=== PATIENT | female | born 1965 | race Caucasian/White ===

== ENCOUNTER → 2019-03-11 12:30 | Outpatient (CLI) | payer BC, SELFPAY ==
--- NOTE | ~2019-03-11 | MM_ITS ---
EXAMINATION: MM screening [facility] BI w karen HISTORY: Screening mammogram TECHNIQUE: Bilateral rotated lateral CC views. ......Craniocaudal and mediolateral oblique 3-D tomosy nthesis images were obtained and synthetic 2-D images were generated. CAD analysis was submitted and interpreted. COMPARISON: 01/04/2018 bilateral digital screening mammogram 03/02/2014 diagnostic right digital mammogram and complete right breast ultrasound 02/15/2014 bilateral digital screening mammogram BREAST PARENCHYMAL COMPOSITION: The breasts are heterogeneously dense, which may obscure small masses . FINDINGS: There is no evidence of suspicious mass, calcification, or architectural distortion to sugg est malignancy in either breast. There has been no suspicious interval change. IMPRESSION: 1. No mammographic evidence of malignancy. 2. Recommend routine screening mammography in one year. BI-RADS Category 1: Negative Reviewed, dictated and finalized at location A. ING ANALYST
== END ==
PROVIDERS: Visit Provider Nurse Practitioner Obstetrics & Gynecology
DX: Z12.31 Encounter for screening mammogram for malignant neoplasm of breast (principal)
CPT/HCPCS: 77063; 77067

== ENCOUNTER 2019-09-20 08:22 | Outpatient (CLI) | payer BC, SELFPAY ==
--- NOTE | ~2019-09-20 | XR_ITS ---
XR hand RT min 3V DATE: 09/20/2019 08:38 INDICATION: Right hand and first digit pain, extending into wrist TECHNIQUE: 3 views of right hand COMPARISON: None FINDINGS: Osteopenia. There are osteophytic changes involving primarily the interphalangeal joints, the distal interphalang eal joints particularly. No erosive change is evident. No chondrocalcinosis. No fracture, dislocation, periosteal reaction or bone destruction is detected. 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
== END 2019-09-20 08:23 | disposition home or self-care (01) ==
PROVIDERS: PCP Internal Medicine; Visit Provider Internal Medicine
DX: M79.641 Pain in right hand (principal)
CPT/HCPCS: 73130

== ENCOUNTER 2019-11-02 10:52 | Outpatient (CLI) | payer BC, SELFPAY ==
[2019-11-03 02:13] LABS: SARS-CoV-2 RNA PCR Negative
== END 2019-11-02 10:53 | disposition home or self-care (01) ==
PROVIDERS: PCP Internal Medicine; Visit Provider Internal Medicine
DX: Z20.828 Contact with and (suspected) exposure to other viral communicable diseases (principal)
CPT/HCPCS: 87635; C9803; U0003

== ENCOUNTER 2020-02-11 02:06 | Outpatient (CLI) | payer BC, SELFPAY ==
[2020-02-11 20:08] LABS: SARS-CoV-2 RNA PCR Negative
== END 2020-02-11 02:07 | disposition home or self-care (01) ==
LOC: ANHCOVIDDT 02:06
PROVIDERS: PCP Internal Medicine; Visit Provider Internal Medicine Gastroenterology
DX: Z01.818 Encounter for other preprocedural examination (principal); Z20.828 Contact with and (suspected) exposure to other viral communicable diseases
CPT/HCPCS: C9803; U0003

== ENCOUNTER 2020-02-15 00:54 | Day surgery (SDC) | payer BC, SELFPAY ==
[2020-01-30 14:02] VITALS: BMI 23.5
[2020-02-15 09:27] VITALS: BP 121/76; PULSE 81; RESP 20; TEMP 36.8; O2SAT 100
[2020-02-15] MEDS: LACTATED RINGERS 1,000 ML 150 ML IV CONT (09:37)
--- NOTE | 2020-02-15 10:13 | WPDANESEPPF ---
Anes - Initial Pre Proc Eval Procedure: Operation Date: 02/15/20 10:15 Proposed Procedures p Esophagogastroduodenoscopy & Colonoscopy - Juanito Gonzales MD Date/Time: 02/15/20 10:13 Surgeon: Juanito Gonzales MD Pre Op Diagnosis: GERD, rectal bleeding Patient Data Age: 54 Gender: F Height: 5 ft 6 in Weight: 65.2 kg Last Vital Signs Temp 98.2 F 02/15/20 09:27 Pulse 81 02/15/20 09:27 Resp 20 02/15/20 09:27 BP 121/76 02/15/20 09:27 Pulse Ox 100 02/15/20 09:27 Allergies Allergy/AdvReac Type Severity Reaction Status Date / Time Penicillins Allergy Swelling Verified 02/15/20 09:25 Home Medications Medication Instructions Recorded Confirmed Type alprazolam 0.5 mg tablet 0.5 mg PO DAILY PRN 01/19/20 01/30/20 History bupropion HCl 300 mg 24 hr tablet, 300 mg PO QAM 01/19/20 01/30/20 History extended release Patient hx anesthesia problems: none Family hx anesthesia problems: none [facility] Past Medical History Medical History (Updated 01/19/20 @ 09:13 by Juanito Gonzales MD) Epigastric pain Rectal bleeding Social History Social History (Updated 01/19/20 @ 08:37 by Rosmery Maldonado CMA) Smoking packs per day: 1.5 Smoking cigarettes per day: 30.0 Smoking status: Current every day smoker Tobacco type: cigarettes Alcohol intake: current Drinks per week: 10 Substance use: never Substance use type: does not use Living arrangements: with friend(s) Spiritual care concerns: No Anes - Eval Final PreProcedure Day of Procedure 02/15/20 10:13 Patient weight: normal Heart: regular rate and rhythm Lungs: clear to auscultation Airway: Mallampati scale class II Neurological: alert and oriented Last oral intake: >/= 8 hours and 2 hours ASA classification: II Emergent: no Anesthetic plan: proceed Anesthesia type and monitoring: general GIVS and standard monitoring Informed Consent: The patient's anesthetic plan and its attendant risks and benefits were discussed with the patient/family/POA. Questions were solicited and answers provided to the satisfaction of the patient/family/POA.
--- NOTE | 2020-02-15 10:36 | WPDHPUPDATE1 ---
History and Physical Update Update Date/Time: 02/15/20 10:36 History and Physical has been reviewed, including an updated exam of the patient. There are NO changes in the patient's condition. Risks, benefits, and alternatives have been discussed and questions answered. Patient agrees to proceed with procedure.
[2020-02-15 11:23] VITALS: BP 113/70; PULSE 70; RESP 17; O2SAT 92
--- NOTE | 2020-02-15 11:25 | SUR.OPER ---
resolution 360 clip times 1 used on Sigmoid polyp site lot number [id number] exp 11/30/22
[2020-02-15 11:33] VITALS: BP 117/77; PULSE 65; RESP 15; O2SAT 100
[2020-02-15 11:43] VITALS: BP 127/87; PULSE 66; RESP 20; O2SAT 100
== END 2020-02-15 11:59 | disposition home or self-care (01) ==
PROVIDERS: PCP Internal Medicine; Visit Provider Internal Medicine Gastroenterology
PROC: 0DJ08ZZ Inspection of Upper Intestinal Tract, Via Natural or Artificial Opening Endoscopic (ICD-10-PCS; CPT 43235; principal; 2020-02-15 10:15)
DX: Z12.11 Encounter for screening for malignant neoplasm of colon (principal); K62.5 Hemorrhage of anus and rectum; D12.5 Benign neoplasm of sigmoid colon; K29.50 Unspecified chronic gastritis without bleeding; K64.8 Other hemorrhoids; D12.0 Benign neoplasm of cecum; K21.9 Gastro-esophageal reflux disease without esophagitis; R10.13 Epigastric pain; F17.210 Nicotine dependence, cigarettes, uncomplicated
CPT/HCPCS: 43239; 45385; 87081; 88305; J2704; J7120

== ENCOUNTER → 2020-08-21 14:52 | Outpatient (CLI) | payer BC, SELFPAY ==
--- NOTE | ~2020-08-21 | MM_ITS ---
EXAMINATION: MM screening [facility] BI w karen HISTORY: Screening mammogram TECHNIQUE: Craniocaudal and mediolateral oblique 3-D tomosynthesis images were obtained and synthetic 2-D images were generated. CAD analysis was submitted and interpreted. COMPARISON: 03/11/2019, 01/04/2018, 03/02/2014, 02/15/2014 BREAST PARENCHYMAL COMPOSITION: The breasts are heterogeneously dense, which may obscure small masses . FINDINGS: There is no evidence of suspicious mass, calcification, or architectural distortion to sugg est malignancy in either breast. There has been no suspicious interval change. IMPRESSION: 1. No mammographic evidence of malignancy. 2. Recommend routine screening mammography in one year. BI-RADS Category 1: Negative Reviewed, dictated and finalized at location A.
== END ==
PROVIDERS: PCP Internal Medicine; Visit Provider Obstetrics & Gynecology
DX: Z12.31 Encounter for screening mammogram for malignant neoplasm of breast (principal)
CPT/HCPCS: 77063; 77067

== ENCOUNTER 2020-11-22 14:18 | Outpatient (CLI) | payer BC, SELFPAY ==
--- NOTE | ~2020-11-22 | XR_ITS ---
XR lumbar spine 2-3V DATE: 11/22/2020 14:57 INDICATION: Back pain radiating to buttocks from 3 weeks TECHNIQUE: AP, lateral, coned lateral lumbosacral views COMPARISON: None FINDINGS: Diffuse osteopenia. Minimal dextroscoliosis of the lumbar spine. There is slight anterolisthesis at L3-4 and slightly greater grade 1 anterolisthesis at L4-5. There is mild degenerative disc disease of the lumbar spine. The L5-S1 interspace is well preserved. No fracture or bone destruction is evident. The included lower thoracic and lumbar pedicles are intac t. The sacral iliac joints are normal. IMPRESSION: Mild degenerative disc disease Minimal anterolisthesis at L3-4 and L4-5 Osteopenia Reviewed, dictated and finalized at location B.
== END 2020-11-22 14:19 | disposition home or self-care (01) ==
LOC: CHSIMG 14:20
PROVIDERS: PCP Internal Medicine; Visit Provider Nurse Practitioner Family
DX: M54.59 Other low back pain (principal)
CPT/HCPCS: 72100

== ENCOUNTER 2020-12-07 07:19 | Outpatient (CLI) | payer BC, SELFPAY ==
--- NOTE | ~2020-12-07 | MR_ITS ---
EXAMINATION: MR lumbar spine wo con DATE: 12/07/2020 08:25 INDICATION: Low back pain. TECHNIQUE: Magnetic resonance imaging (MRI) of the lumbar spine was performed without intravenous con trast. Sequences included sagittal T2-weighted FSE, sagittal T2-weighted FS FSE, sagittal T1-weighted FSE, and axial T2-weighted FSE. COMPARISON: Lumbar spine radiographs 11/22/2020 FINDINGS: There is 3 degrees dextrocurvature of lumbar spine. Vertebral body heights are normal. Ther e is mildly decreased disc height at L4-L5. The distal spinal cord signal intensity is normal. The co nus medullaris is at L1. The following disc levels are specifically discussed: L1-L2: The disc does not extend beyond the endplate margin. There is moderate right and mild left fac et joint osteoarthritis. There is no neural foraminal stenosis. There is no central canal stenosis. L2-L3: The disc does not extend beyond the endplate margin. There is moderate bilateral facet joint o steoarthritis. There is no neural foraminal stenosis. There is no central canal stenosis. L3-L4: The disc is bulging. There is severe bilateral facet joint osteoarthritis. There is mild bilat eral neural foraminal stenosis. There is no central canal stenosis. L4-L5: The disc is bulging. There is severe bilateral facet joint osteoarthritis. There is mild bilat eral neural foraminal stenosis. There is mild central canal stenosis. L5-S1: The disc is bulging. There is severe bilateral facet joint osteoarthritis. There is mild bilat eral neural foraminal stenosis. There is no central canal stenosis. IMPRESSION: 1. Mild lumbar spondylosis. Reviewed, dictated and finalized at location A. IMPRESSION: 1. Mild lumbar spondylosis.
== END 2020-12-07 07:20 | disposition home or self-care (01) ==
PROVIDERS: PCP Internal Medicine; Visit Provider Nurse Practitioner Family
DX: M47.896 Other spondylosis, lumbar region (principal)
CPT/HCPCS: 72148

== ENCOUNTER 2020-12-11 12:47 | Outpatient (RCR) | payer BC, SELFPAY ==
--- NOTE | 2020-12-11 13:53 | PTOPEVAL ---
Thank you for referring Jolie Huff to [facility].? The patient is scheduled to be seen for therapy? ____x/week for ___ weeks. Please review, sign, date and return this plan of care [place]. I agree with and certify that the following plan of care is medically necessary. Referring Physician Date Admitting Provider: Attending Provider: Niall Lott MD Referring Provider: *PT Outpatient Evaluation Start: 12/11/20 12:56 Freq: Status: Active Protocol: Document 12/11/20 12:57 ACR (Rec: 12/11/20 13:52 ACR [id number]) Therapy Assessment Status Assessment Status Assessment Status Evaluation Outpatient Past Medical History Neurological History Hx Neurological Disorders No Significant History Cardiovascular History Hx Cardiac Disorders No Significant History Respiratory History Hx Respiratory Disorders No Significant History Gastrointestinal History Hx Hemorrhoids Yes Genitourinary History Hx Urinary Tract Infection Yes Musculoskeletal History Hx Fractures Yes: RT COLLAR BONE Hx Orthopedic Surgery Yes: RT COLLAR BONE Hematological History Hx Hematological Disorders No Significant History Endocrine History Hx Endocrine Disorders No Significant History HEENT History Hx Eye Surgery Yes: LASIK Integumentary History Hx Skin Disorders No Significant History Reproductive History Hx Abnormal Uterine Bleeding Yes Hx Post Menopausal Yes Psychosocial History Hx Anxiety Yes Pain History History of Any Previous or Ongoing No Significant History Instance of Pain Anesthesia History Hx Anesthesia Reactions No Significant History Evaluation Information Problem Diagnosis low back pain Subjective Information Patient states that her back Query Text:As Reported By Patient/ pain started to intensify Family gradually about 6 weeks ago. She states that if she stands for more than 10 minutes the pain is intense. She states she can walk a little bit but needs to bend forward to make it feel better. She use to go on long walks, but is unable to so and she is unable to go to the gym because of the pain . She states she is doing some core exercises. Patient states that she got an MRI that showed bulging discs at 3 -4-5, foramenal arthritis is L3
== END 2020-12-27 17:00 | disposition home or self-care (01) ==
LOC: CHSPT 12:47
PROVIDERS: PCP Internal Medicine; Visit Provider Internal Medicine
DX: M54.50 Low back pain, unspecified (principal)
CPT/HCPCS: 97110; 97161; 97530

== ENCOUNTER 2021-01-28 13:42 | Outpatient (CLI) | payer BC, SELFPAY ==
[2021-01-28 15:26] LABS: Influenza A QL RT-PCR Negative (Negative); Influenza B QL RT-PCR Negative (Negative); SARS-CoV-2 RNA PCR Negative (Negative)
== END 2021-01-28 13:43 | disposition home or self-care (01) ==
LOC: CHSLAB 13:44
PROVIDERS: PCP Internal Medicine; Visit Provider Internal Medicine
DX: J06.9 Acute upper respiratory infection, unspecified (principal); Z20.822 Contact with and (suspected) exposure to COVID-19
CPT/HCPCS: 87502; C9803; U0003; U0005

== ENCOUNTER → 2021-09-03 16:30 | Outpatient (CLI) | payer BC, SELFPAY ==
--- NOTE | ~2021-09-03 | MM_ITS ---
EXAMINATION: MM screening benjamin BI w karen HISTORY: Screening mammogram TECHNIQUE: Craniocaudal and mediolateral oblique 3-D tomosynthesis images were obtained and synthetic 2-D images were generated. CAD analysis was submitted and interpreted. COMPARISON: 08/21/2020, 03/11/2019, 01/04/2018 bilateral screening mammogram examinations BREAST PARENCHYMAL COMPOSITION: The breasts are heterogeneously dense, which may obscure small masses . FINDINGS: There is no evidence of suspicious mass, calcification, or architectural distortion to sugg est malignancy in either breast. There has been no suspicious interval change. IMPRESSION: 1. No mammographic evidence of malignancy. 2. Recommend routine screening mammography in one year. BI-RADS Category 1: Negative Reviewed, dictated and finalized at location A.
== END ==
PROVIDERS: PCP Internal Medicine; Visit Provider Nurse Practitioner Obstetrics & Gynecology
DX: Z12.31 Encounter for screening mammogram for malignant neoplasm of breast (principal)
CPT/HCPCS: 77063; 77067

== ENCOUNTER 2021-09-20 11:15 | Outpatient (CLI) | payer BC, SELFPAY ==
--- NOTE | ~2021-09-20 | XR_ITS ---
EXAMINATION: XR ribs RT 2V w CXR 2V INDICATION: Right lateral rib pain, cough TECHNIQUE: Frontal and lateral views of the chest and 3 views of the right ribs were obtained. COMPARISON: 12/03/2015 FINDINGS: There are airspace opacities and volume loss of the right middle and lower lobes. There is a small right pleural effusion. No pneumothorax is identified. The cardiomediastinal silhouette is no rmal. There is moderate thoracic spondylosis. No displaced rib fracture is identified. IMPRESSION: 1. Airspace opacities and volume loss in the right middle and lower lobes, consistent with atelectasi s and/or pneumonia. Recommend followup radiographs in 10-14 days after appropriate therapy to evaluat e for improvement/resolution. 2. Small pleural effusion. 3. No displaced rib fracture identified. Reviewed, dictated and finalized at location A. IMPRESSION: 1. Airspace opacities and volume loss in the right middle and lower lobes, cons istent with atelectasis and/or pneumonia. Recommend followup radiographs in 10- 14 days after appropriate therapy to evaluate for improvement/resolution. 2. Small pleural effusion. 3. No displaced rib fracture identified.
[2021-09-20 11:47] LABS: Basophils Absolute Auto 0.04 K/mm3 (0.00-0.10); Basophils Percent Auto 0.5 % (0.0-1.0); Eosinophils Absolute Auto 0.23 K/mm3 (0.02-0.50); Eosinophils Percent Auto 2.7 % (1.0-6.0); Hematocrit 36.1 % (35.0-49.0); Hemoglobin 11.4 g/dL (12.0-15.0); Immature Granulocyte Absolute 0.02 K/mm3 (0.00-0.00); Immature Granulocyte Percent A 0.2 % (0.0-0.0); Lymphocytes Absolute Auto 1.26 K/mm3 (1.10-4.50); Lymphocytes Percent Auto 14.6 % (18.0-42.0); Mean Corpuscular HGB Conc 31.6 g/dL (32.0-36.0); Mean Corpuscular Hemoglobin 31.1 pg (27.0-31.0); Mean Corpuscular Volume 98.6 fL (78.0-102.0); Mean Platelet Volume 9.2 fl (9.2-11.8); Monocytes Absolute Auto 0.98 K/mm3 (0.10-0.90); Monocytes Percent Auto 11.3 % (2.0-11.0); Neutrophils Absolute Auto 6.1 K/mm3 (1.7-7.2); Neutrophils Percent Auto 70.7 % (50.0-70.0); Platelet Count Result 423 K/mm3 (150-420); Red Blood Count 3.66 M/mm3 (4.20-5.40); White Blood Count 8.7 K/mm3 (4.8-10.8)
[2021-09-20 12:03] LABS: Alanine Aminotransferase 18 U/L (14-59); Albumin Level 3.1 g/dL (3.4-5.0); Alkaline Phosphatase 70 U/L (46-116); Amylase 36 U/L (25-115); Anion Gap 10 mmol/L (8-16); Aspartate Amino Transferase 16 U/L (15-37); Bilirubin,Total 0.3 mg/dL (0.00-1.00); Blood Urea Nitrogen 11 mg/dL (7-18); Calcium 9.5 mg/dL (8.5-10.1); Carbon Dioxide 26 mmol/L (21-32); Chloride 102 mmol/L (98-108); Estimated Glomerular Filt Rate > 60; Glucose 108 mg/dL (70-99); Lipase 104 U/L (73-393); Osmolality Calculated 286 mOsm/kg (285-295); Potassium 4.2 mmol/L (3.5-5.1); Sodium 138 mmol/L (136-145); Total Protein 7.7 g/dL (6.4-8.2)
[2021-09-20 12:09] LABS: CRP 12.5 mg/dL (0.0-0.9)
[2021-09-20 12:22] LABS: SARS-CoV-2 RNA PCR Negative (Negative)
[2021-09-20 16:28] LABS: Ferritin 335 ng/mL (8-252); Iron 16 ug/dL (50-170); Percent Iron Saturation 9 % (12-57)
== END 2021-09-20 11:16 | disposition home or self-care (01) ==
LOC: CHSLAB 11:19
PROVIDERS: PCP Internal Medicine; Visit Provider Nurse Practitioner Family
DX: J06.9 Acute upper respiratory infection, unspecified (principal); R07.81 Pleurodynia; R11.0 Nausea; R19.7 Diarrhea, unspecified; R10.9 Unspecified abdominal pain; Z20.822 Contact with and (suspected) exposure to COVID-19; D64.9 Anemia, unspecified
CPT/HCPCS: 36415; 71046; 71100; 80053; 82150; 82728; 83540; 83550; 83690; 85025; 86140; C9803; U0003; U0005

== ENCOUNTER 2021-09-30 07:52 | Outpatient (CLI) | payer BC, SELFPAY ==
--- NOTE | ~2021-09-30 | CT_ITS ---
EXAMINATION: CT diagnostic chest w con DATE: 09/30/2021 08:19 INDICATION: Right-sided chest pain TECHNIQUE: Transaxial computed tomographic images of the chest were obtained after the administration of 75 cc of Omnipaque 350 intravenous contrast. The dose-length product (DLP) was 125.98 mGy-cm. Ite rative reconstruction was used. COMPARISON: None FINDINGS: There are pulmonary emboli in the right lower lobe. There are right lower lobe airspace opa cities peripheral to the emboli. The lungs are otherwise free of acute opacities. There is a small ri ght pleural effusion. No pathologically enlarged thoracic lymph nodes are identified. The heart size is normal. There is mild thoracic spondylosis. IMPRESSION: 1. Pulmonary emboli in the right lower lobe with right lower lobe airspace opacities peripheral to th e emboli, consistent with pulmonary infarct. These findings were discussed with nurse Rena practitioner in the office of Dr. Lott at 1028 hours on 09/30/2021. Reviewed, dictated and finalized at location B. IMPRESSION: 1. Pulmonary emboli in the right lower lobe with right lower lobe airspace opac ities peripheral to the emboli, consistent with pulmonary infarct. These findings were discussed with nurse sharifa Chase in the office of Dr Brant Lott at 1028 hours on 09/30/2021.
[2021-09-30 12:53] LABS: Basophils Absolute Auto 0.11 K/mm3 (0.00-0.10); Basophils Percent Auto 1.6 % (0.0-1.0); Eosinophils Absolute Auto 0.31 K/mm3 (0.02-0.50); Eosinophils Percent Auto 4.4 % (1.0-6.0); Hematocrit 39.5 % (35.0-49.0); Hemoglobin 12.6 g/dL (12.0-15.0); Immature Granulocyte Absolute 0.03 K/mm3 (0.00-0.00); Immature Granulocyte Percent A 0.4 % (0.0-0.0); Lymphocytes Absolute Auto 2.47 K/mm3 (1.10-4.50); Lymphocytes Percent Auto 35.2 % (18.0-42.0); Mean Corpuscular HGB Conc 31.9 g/dL (32.0-36.0); Mean Corpuscular Hemoglobin 31.5 pg (27.0-31.0); Mean Corpuscular Volume 98.8 fL (78.0-102.0); Mean Platelet Volume 10.4 fl (9.2-11.8); Monocytes Absolute Auto 0.44 K/mm3 (0.10-0.90); Monocytes Percent Auto 6.3 % (2.0-11.0); Neutrophils Absolute Auto 3.7 K/mm3 (1.7-7.2); Neutrophils Percent Auto 52.1 % (50.0-70.0); Platelet Count Result 533 K/mm3 (150-420)
[2021-09-30 13:25] LABS: Prothrombin Time 10.8 Seconds (9.50-12.10)
[2021-09-30 13:30] LABS: Alanine Aminotransferase 17 U/L (14-59); Albumin Level 3.9 g/dL (3.4-5.0); Alkaline Phosphatase 63 U/L (46-116); Anion Gap 7 mmol/L (8-16); Aspartate Amino Transferase 18 U/L (15-37); Bilirubin,Total 0.2 mg/dL (0.00-1.00); Blood Urea Nitrogen 11 mg/dL (7-18); Calcium 9.3 mg/dL (8.5-10.1); Carbon Dioxide 29 mmol/L (21-32); Chloride 101 mmol/L (98-108); Estimated Glomerular Filt Rate > 60; Glucose 91 mg/dL (70-99); NT Pro B Type Natriuretic Pept 47 pg/mL (0-125); Osmolality Calculated 283 mOsm/kg (285-295); Potassium 3.6 mmol/L (3.5-5.1); Sodium 137 mmol/L (136-145); Total Protein 7.9 g/dL (6.4-8.2)
[2021-10-02 19:34] LABS: APC Ratio 4.2 ratio (>=2.1)
[2021-10-02 21:08] LABS: Factor VIII Activity 146 % normal (50-180)
[2021-10-03 11:02] LABS: Homocysteine 17.2 umol/L (<10.4)
[2021-10-03 11:31] LABS: Anti Cardio Antibody IgM <2.0 MPL-U/mL (<20.0); Anti Cardiolipin Antibody IgA <2.0 APL-U/mL (<20.0); Anti Cardiolipin Antibody IgG <2.0 GPL-U/mL (<20.0)
[2021-10-03 12:50] LABS: Protein S Antigen, Free 128 % normal (50-147); Protein S Antigen, Total 122 % normal (70-140)
[2021-10-04 07:01] LABS: Reference Lab Test Name PHOSPHATIDYLSERINE
[2021-10-05 04:29] LABS: Lupus dRVVT 1:1 Mix Interpreta Not Indicated; Lupus dRVVT Screen 44 sec (<=45); PTT-LA Screen 36 sec (<=40)
[2021-10-07 07:23] LABS: Reference Lab Test Name FACTOR V (LEIDEN)
== END 2021-09-30 07:53 | disposition home or self-care (01) ==
PROVIDERS: PCP Internal Medicine; Visit Provider Internal Medicine
DX: I26.99 Other pulmonary embolism without acute cor pulmonale (principal); R07.9 Chest pain, unspecified; R91.8 Other nonspecific abnormal finding of lung field
CPT/HCPCS: 36415; 71260; 80053; 81240; 81241; 81291; 83090; 83880; 85025; 85240; 85300; 85303; 85305; 85306; 85307; 85610; 85613; 85730; 86146; 86147; 86148; Q9967

== ENCOUNTER 2021-10-08 13:32 | Outpatient (CLI) | payer BC, SELFPAY ==
--- NOTE | ~2021-10-08 | US_ITS ---
EXAMINATION: US venous doppler [facility] DATE: 10/08/2021 14:18 INDICATION: left calf pain and bruising . TECHNIQUE: Grayscale images without and with compression and Doppler images of the bilateral lower ex tremity veins were obtained. COMPARISON: None FINDINGS: The right common femoral vein, profunda (deep) femoral vein, femoral vein, popliteal vein, peroneal v ein, posterior tibial veins, gastrocnemius vein, lesser and greater saphenous vein are patent. The left common femoral vein, profunda femoral vein, femoral vein, popliteal vein, peroneal vein, pos terior tibial veins, gastrocnemius vein, lesser and greater saphenous vein are patent. IMPRESSION: 1. Patent bilateral lower extremity veins. No evidence of deep venous thrombosis. Reviewed, dictated and finalized at location K. IMPRESSION: 1. Patent bilateral lower extremity veins. No evidence of deep venous thrombos is.
== END 2021-10-08 13:33 | disposition home or self-care (01) ==
LOC: CHSIMG 13:34
PROVIDERS: PCP Internal Medicine; Visit Provider Internal Medicine
DX: M79.662 Pain in left lower leg (principal); S80.12XA Contusion of left lower leg, initial encounter; I26.99 Other pulmonary embolism without acute cor pulmonale
CPT/HCPCS: 93970

== ENCOUNTER 2021-10-23 12:14 | Outpatient (CLI) | payer BC, SELFPAY ==
[2021-10-23 12:34] LABS: Hematocrit 39.2 % (35.0-49.0); Hemoglobin 12.3 g/dL (12.0-15.0); Mean Corpuscular HGB Conc 31.4 g/dL (32.0-36.0); Mean Corpuscular Hemoglobin 31.3 pg (27.0-31.0); Mean Corpuscular Volume 99.7 fL (78.0-102.0); Mean Platelet Volume 10.6 fl (9.2-11.8); Platelet Count Result 243 K/mm3 (150-420); Red Blood Count 3.93 M/mm3 (4.20-5.40); Red Cell Distribution Width 13.2 % (11.6-14.4); White Blood Count 3.8 K/mm3 (4.8-10.8)
[2021-10-23 12:55] LABS: CRP < 0.5 mg/dL (0.0-0.9)
[2021-10-23 13:09] LABS: Band Neutrophils Percent 0 % (0-6); Lymphocytes Absolute Manual 1.71 K/mm3 (1.1-4.5); Lymphocytes Percent Manual 45 % (18-44); Monocytes Absolute Manual 0.11 K/mm3 (0.1-0.90); Monocytes Percent Manual 3 % (3-9); Neutrophils Absolute Manual 1.97 K/mm3 (1.7-7.2); Neutrophils Percent Manual 52 % (46-73); Platelet Estimate Adequate (Adequate); Total Cells Counted 100
[2021-10-25 21:32] LABS: Anti Cyclic Citrullinated Pept <16 Units (<20)
[2021-10-29 06:54] LABS: Anti Nuclear Antibody Pattern Nuclear, Speckled; Anti Nuclear Antibody Titer 1:40 (Negative)
[2021-10-29 21:23] LABS: ANCA Screen Negative (Negative)
[2021-11-01 16:25] LABS: Reference Lab Test Name ANTIPHOSPHOLIPID AB
== END 2021-10-23 12:15 | disposition home or self-care (01) ==
LOC: CHSLAB 12:18
PROVIDERS: PCP Internal Medicine; Visit Provider Internal Medicine
DX: I26.99 Other pulmonary embolism without acute cor pulmonale (principal); D64.9 Anemia, unspecified; D68.59 Other primary thrombophilia
CPT/HCPCS: 36415; 85025; 86036; 86038; 86039; 86140; 86146; 86147; 86148; 86200

== ENCOUNTER 2021-12-25 14:40 | Outpatient (CLI) | payer BC, SELFPAY ==
[2021-12-25 14:57] LABS: Basophils Absolute Auto 0.04 K/mm3 (0.00-0.10); Basophils Percent Auto 0.9 % (0.0-1.0); Eosinophils Absolute Auto 0.08 K/mm3 (0.02-0.50); Eosinophils Percent Auto 1.8 % (1.0-6.0); Hemoglobin 12.3 g/dL (12.0-15.0); Immature Granulocyte Absolute 0.01 K/mm3 (0.00-0.00); Immature Granulocyte Percent A 0.2 % (0.0-0.0); Lymphocytes Percent Auto 48.2 % (18.0-42.0); Mean Corpuscular HGB Conc 32.4 g/dL (32.0-36.0); Mean Corpuscular Hemoglobin 31.9 pg (27.0-31.0); Mean Corpuscular Volume 98.7 fL (78.0-102.0); Monocytes Percent Auto 8.8 % (2.0-11.0); Neutrophils Absolute Auto 1.8 K/mm3 (1.7-7.2); Neutrophils Percent Auto 40.1 % (50.0-70.0); Platelet Count Result 260 K/mm3 (150-420); Red Blood Count 3.85 M/mm3 (4.20-5.40); Red Cell Distribution Width 12.8 % (11.6-14.4); White Blood Count 4.6 K/mm3 (4.8-10.8)
[2021-12-25 15:30] LABS: Alanine Aminotransferase 22 U/L (14-59); Alkaline Phosphatase 52 U/L (46-116); Anion Gap 5 mmol/L (8-16); Aspartate Amino Transferase 20 U/L (15-37); Bilirubin,Total 0.3 mg/dL (0.00-1.00); Blood Urea Nitrogen 16 mg/dL (7-18); Calcium 9.2 mg/dL (8.5-10.1); Carbon Dioxide 32 mmol/L (21-32); Chloride 104 mmol/L (98-108); Estimated Glomerular Filt Rate > 60; Glucose 125 mg/dL (70-99); Osmolality Calculated 294 mOsm/kg (285-295); Potassium 4.6 mmol/L (3.5-5.1); Sodium 141 mmol/L (136-145); Total Protein 7.2 g/dL (6.4-8.2)
[2021-12-25 15:32] LABS: CRP < 0.5 mg/dL (0.0-0.9)
== END 2021-12-25 14:41 | disposition home or self-care (01) ==
LOC: CHSLAB 14:42
PROVIDERS: PCP Internal Medicine; Visit Provider Internal Medicine
DX: D72.819 Decreased white blood cell count, unspecified (principal); M54.9 Dorsalgia, unspecified
CPT/HCPCS: 36415; 80053; 85025; 86140

== ENCOUNTER 2022-02-19 00:20 | Day surgery (SDC) | payer BC, SELFPAY ==
[2022-02-11 09:59] VITALS: BMI 24.1
--- NOTE | 2022-02-11 10:03 | PC.NURSE ---
Report to the Outpatient Waiting Room, entrance under the green pavilion located off [facility], at time 0730 on date 02/19/22. Planned Procedure Time: 0930. Time changes happen often and if your time is changed the preop area will call you the afternoon before. - You and your visitor will be asked to self-screen and do not enter if you have any COVID symptoms. - Only one visitor is requested with a max of two and NO children visitors are allowed at this time. - The patient visitor may be requested to leave or wait in car when not with patient due to distancing restrictions. - A mask is REQUIRED within the hospital. Patients may have clear liquids (water, carbonated beverages, clear teas, apple juice) until 3 hours prior to surgery with a maximum of 20 ounces. - No food from midnight until time of surgery Take the following medications with a SIP of water the morning of surgery: ALPRAZOLAM, BUPROPION Medications to discontinue per physician: N/A Date to take last dose: N/A Please no make-up, nail romansh, hairspray, perfume, deodorant, or body powder the day of surgery. No jewelry (including any body piercings) or valuables the day of surgery, leave them at home. Please take a shower or bath the night before, or the morning of, surgery with an antibacterial soap. Wear comfortable, loose fitting clothing. - Jewelry must be removed prior to entering the operating room. Rings and piercings that are not removed may be cut off. - The hospital will not accept responsibility for valuables. - Please leave all valuables, including medications, at home the day of surgery. If you are going home after surgery, a licensed milk tanker driver must drive you home. - NO public transportation without another adult if you receive anesthesia. - We recommend that an adult stay with you for 24 hours following discharge. - We also recommend that you do not drive, make important decision, drink alcoholic beverages, or take any drugs that were not prescribed by your health care provider for at least 24 hours after your discharge time. Follow any additional instructions given to you from your surgeon. If you or anyone in your household have experienced Covid symptoms in the past week, please notify your surgeon or the nurse liaison at the phone number below for possible testing. Telephone instructions given to PT - DARCY CHAIDEZ and asked if any additional questions and then verbalized understanding. Patient advised to call surgeon office or pre surgery nurse liaison [phone] if any additional questions.
[2022-02-19] MEDS: ACETAMINOPHEN 500 MG TABLET 1000 MG PO (07:43)
[2022-02-19 07:51] VITALS: BP 125/59; PULSE 75; RESP 16; TEMP 36.5; O2SAT 100
[2022-02-19] MEDS: LACTATED RINGERS 1,000 ML 30 ML IV CONT ×2 (08:09→11:38)
--- NOTE | 2022-02-19 08:28 | P.PNAN_ITS ---
Anes - Initial Pre Proc Eval Procedure: Operation Date: 02/19/22 09:30 Proposed Procedures p Conization of Cervix - Иван Avila MD Date/Time: 02/19/22 08:28 Surgeon: Иван Avila MD Pre Op Diagnosis: dysplasia of cervix Patient Data Age: 56 Gender: F Height: 1.65 m Weight: 67 kg Last Vital Signs Temp 36.5 C 02/19/22 07:51 Pulse 75 02/19/22 07:51 Resp 16 02/19/22 07:51 BP 125/59 L 02/19/22 07:51 Pulse Ox 100 02/19/22 07:51 O2 Del Method Room Air 02/19/22 07:51 Allergies Allergy/AdvReac Type Severity Reaction Status Date / Time Penicillins Allergy Intermediate Swelling Verified 02/19/22 07:38 Home Medications Medication Instructions Recorded Confirmed Type alprazolam 0.5 mg tablet 0.5 mg PO DAILY PRN Anxiety 01/19/20 02/19/22 History bupropion HCl 300 mg 24 hr tablet, 300 mg PO QAM 01/19/20 02/19/22 History extended release Patient hx anesthesia problems: none Family hx anesthesia problems: none Results Review: All pre-operative results and documents have been reviewed as part of the pre- operative evaluation. [facility] Past Medical History Medical History Epigastric pain Rectal bleeding Surgical History Surgical History (Updated 02/19/22 @ 08:28 by Rey Cortes MD) H/O colonoscopy History of esophagogastroduodenoscopy (EGD) Social History Social History Smoking packs per day: 1 Smoking cigarettes per day: 20.0 Years smoked: 25 Smoking pack-years: 25.00 Smoking status: Current some day smoker Tobacco type: cigarettes Alcohol intake: current Drinks per week: 14 Alcohol use details: WINE Substance use: never Substance use type: does not use Living arrangements: alone Spiritual care concerns: No Anes - Eval Final PreProcedure Day of Procedure 02/19/22 08:28 Patient weight: normal Heart: regular rate and rhythm Lungs: clear to auscultation Airway: Mallampati scale class II Neurological: alert and oriented Last oral intake: >/= 8 hours ASA classification: II Emergent: no Anesthetic plan: proceed Anesthesia type and monitoring: general GIVS and standard monitoring Results Review: All pre-operative results and documents have been reviewed as part of the pre- operative evaluation. Informed Consent: The patient's anesthetic plan and its attendant risks and benefits were discussed with the patient/family/POA. Questions were solicited and answers provided to the satisfaction of the patient/family/POA.
--- NOTE | 2022-02-19 10:29 | WPDHPUPDATE1 ---
History and Physical Update Update Date/Time: 02/19/22 10:29 History and Physical has been reviewed, including an updated exam of the patient. There are NO changes in the patient's condition. Risks, benefits, and alternatives have been discussed and questions answered. Patient agrees to proceed with procedure.
[2022-02-19 11:38] VITALS: BP 154/78; PULSE 74; RESP 18; O2SAT 98
[2022-02-19] MEDS: fentaNYL CITRATE INJ (*CRX) 100 MCG/2 ML VIAL 25 MCG IV PUSH ×4 (11:41→11:50)
--- NOTE | 2022-02-19 11:48 | P.OP_ITS ---
Procedure Note - Detailed Date of Procedure 02/19/22 Pre-op Diagnosis dysplasia of cervix Post-op Diagnosis Same Procedure Performed Conization of the cervix Surgeon Иван Avila MD Anesthesia MAC Indications MILADYS 3 Findings cervix status post LEEP, some scarring, some disfiguration. Description of Procedure The patient was taken the operating room. She was prepped and draped in the dorsal lithotomy position after induction of MAC anesthesia. A speculum was placed in the vagina. Stay sutures were placed at 3 and 9:00 a.m. after application of a tenaculum. Using a freehand style approach cutting cautery was used to make a large aggressive cone biopsy specimen starting out on the lateral aspects of the anterior cervix and moving in a circular fashion around the cervix, moving centrally towards the endocervical canal but deeper into the cervix. When this cutting technique was completed and the cone biopsy specimen was excised The cut surface of the cervix was then cauterized. A suture was p laced in the posterior aspect of the cervix. This almost made the cervix completely hemostatic. Monsel's was then applied. A stay sutures for all tied together centrally. It was hemostatic at that time. The procedure was terminated. The speculum was removed. The stay sutures were cut. The procedure was completed. The patient was taken to the cover room stable condition. Sponge lap and needle counts were correct x2.. Estimated Blood Loss 25 Pathology Yes Complications No immediate complications Condition Stable Disposition Same day
[2022-02-19] MEDS: KETOROLAC 30 MG/ML VIAL (*BKC) IV PUSH (11:54)
[2022-02-19] MEDS: HYDROmorphone HCL INJ (*CRX) 1 MG/ML SYR 0.5 MG IV PUSH ×2 (11:58→12:15)
[2022-02-19 12:00] VITALS: BP 126/76; PULSE 65; RESP 16; O2SAT 99
[2022-02-19 12:30] VITALS: BP 139/88; PULSE 61; RESP 16
[2022-02-19] MEDS: oxyCODONE HCL (*CRX) 5 MG TAB IR PO (12:49)
[2022-02-19 13:00] VITALS: BP 141/79; PULSE 54; RESP 14
[2022-02-19 13:20] VITALS: BP 142/90; PULSE 63; RESP 14
== END 2022-02-19 13:27 | disposition home or self-care (01) ==
PROVIDERS: PCP Internal Medicine; Visit Provider Obstetrics & Gynecology
PROC: 0UBC7ZZ Excision of Cervix, Via Natural or Artificial Opening (ICD-10-PCS; CPT 57522; principal; 2022-02-19 09:30)
DX: N87.9 Dysplasia of cervix uteri, unspecified (principal); F17.210 Nicotine dependence, cigarettes, uncomplicated
CPT/HCPCS: 57522; 88307; A9270; J1170; J1885; J2250; J2704; J3010; J7120

== ENCOUNTER 2022-04-08 01:09 | Day surgery (SDC) | payer BC, SELFPAY ==
[2022-03-25 15:23] VITALS: BMI 24.0
--- NOTE | 2022-04-07 09:30 | P.PNAN_ITS ---
Anes - Initial Pre Proc Eval Procedure: Operation Date: 04/08/22 08:30 Proposed Procedures p Screening Colonoscopy - Juanito Gonzales MD Date/Time: 04/07/22 09:30 Surgeon: Juanito Gonzales MD Pre Op Diagnosis: hx of colon polyps Patient Data Age: 56 Gender: F Height: 1.66 m Weight: 66 kg Allergies Allergy/AdvReac Type Severity Reaction Status Date / Time Penicillins Allergy Severe Swelling Verified 04/08/22 07:12 Home Medications Medication Instructions Recorded Confirmed Type alprazolam 0.5 mg tablet 0.5 mg PO DAILY PRN Anxiety 01/19/20 04/08/22 History bupropion HCl 300 mg 24 hr tablet, 300 mg PO QAM 01/19/20 04/08/22 History extended release apixaban 5 mg tablet (Eliquis) 5 mg PO BID 03/25/22 04/08/22 History Patient hx anesthesia problems: none Family hx anesthesia problems: none Results Review: All pre-operative results and documents have been reviewed as part of the pre- operative evaluation. [facility] Past Medical History Medical History (Updated 04/08/22 @ 08:00 by Miguel Angel Cifuentes DO) Anxiety Depression Epigastric pain History of pulmonary embolism 09/2021 Rectal bleeding Surgical History Surgical History (Updated 02/19/22 @ 08:28 by Rey Cortes MD) H/O colonoscopy History of esophagogastroduodenoscopy (EGD) Social History Social History (Updated 04/08/22 @ 08:01 by Miguel Angel Cifuentes DO) Smoking packs per day: 1 Smoking cigarettes per day: 20.0 Years smoked: 25 Smoking pack-years: 25.00 Smoking status: Former smoker Tobacco type: cigarettes Alcohol intake: current Drinks per week: 10 Alcohol use details: 1-2 glasses wine/day Substance use: never Substance use type: does not use Living arrangements: with family Occupation/Education: unemployed Spiritual care concerns: No Anes - Eval Final PreProcedure Day of Procedure 04/07/22 09:30 Patient weight: normal Heart: regular rate and rhythm Lungs: clear to auscultation and normal air movement Airway: Mallampati scale class II Neurological: alert and oriented Last oral intake: >/= 8 hours ASA classification: III Emergent: no Anesthetic plan: proceed Anesthesia type and monitoring: general GIVS and standard monitoring Results Review: All pre-operative results and documents have been reviewed as part of the pre- operative evaluation. Informed Consent: The patient's anesthetic plan and its attendant risks and benefits were discussed with the patient/family/POA. Questions were solicited and answers provided to the satisfaction of the patient/family/POA.
[2022-04-08 07:03] VITALS: BP 131/88; PULSE 73; RESP 18; TEMP 36.3; O2SAT 100; BMI 24.3
[2022-04-08] MEDS: LACTATED RINGERS 1,000 ML 150 ML IV CONT (07:23)
--- NOTE | 2022-04-08 08:18 | PM.HPGS ---
History of Present Illness History of Present Illness Consent: Risks, benefits, and alternatives have been discussed and questions answered. Patient agrees to proceed with procedure. Chief complaint: hx of colon polyps Narrative: Jolie Huff is a 56 year old female with several polyps removed in 2020 Review of Systems Constitutional: Constitutional: Denies headache(s) and Denies weakness Eyes: Eyes: Denies blurry vision ENT: Reports Normal hearing present, Denies headache(s) and Denies neck pain Cardiovascular: Cardiovascular: Denies chest pain and Denies dyspnea Respiratory: Respiratory: Denies dyspnea Gastrointestinal: Gastrointestinal: Reports no additional gastrointestinal complaints Genitourinary: Genitourinary: Denies dysuria Musculoskeletal: Musculoskeletal: Denies neck pain Integumentary/Breasts: Skin/Breast: Denies dry skin Neurologic: Reports Normal hearing present, Denies headache(s) and Denies weakness Psychiatric: Psychiatric: Denies anxiety Endocrine: Endocrine: Denies change in body appearance Hematologic/Lymphatic: Hematologic/Lymphatic: Denies easy bleeding Allergic/Immunologic: Allergic/Immunologic: Denies urticaria PMFSH Past Medical History Medical History (Updated 04/08/22 @ 08:19 by Juanito Gonzales MD) Adenomatous colon polyp Anxiety Depression Epigastric pain History of pulmonary embolism 09/2021 Rectal bleeding Surgical History Surgical History (Updated 02/19/22 @ 08:28 by Rey Cortes MD) H/O colonoscopy History of esophagogastroduodenoscopy (EGD) Social History Social History (Updated 04/08/22 @ 08:01 by Miguel Angel Cifuentes DO) Smoking packs per day: 1 Smoking cigarettes per day: 20.0 Years smoked: 25 Smoking pack-years: 25.00 Smoking status: Former smoker Tobacco type: cigarettes Alcohol intake: current Drinks per week: 10 Alcohol use details: 1-2 glasses wine/day Substance use: never Substance use type: does not use Living arrangements: with family Occupation/Education: unemployed Spiritual care concerns: No Meds Home Medications and Allergies Home Medications Medication Instructions Recorded Confirmed Type alprazolam 0.5 mg tablet 0.5 mg PO DAILY PRN Anxiety 01/19/20 04/08/22 History bupropion HCl 300 mg 24 hr tablet, 300 mg PO QAM 01/19/20 04/08/22 History extended release apixaban 5 mg tablet (Eliquis) 5 mg PO BID 03/25/22 04/08/22 History Allergies Allergy/AdvReac Type Severity Reaction Status Date / Time Penicillins Allergy Severe Swelling Verified 04/08/22 07:12 Vital Signs Vital Signs - 24 hr 04/08/22 07:03 Temperature 97.4 F L Pulse Rate 73 Respiratory Rate 18 Blood Pressure 131/88 Pulse Oximetry 100 Oxygen Delivery Room Air Exam Const: General: comfortable and no acute distress HENMT: Face/Nose/Sinus: Normal nares present Eyes: General: appearance normal, both eyes and all related structures Neck: Neck: no JVD Resp: Auscultation: clear to auscultation bilaterally Cardio: Rate: regular rate Rhythm: regular rhythm GI: Inspection: non-distended GI Palp: Yes Soft to palpation Skin: General skin exam: normal color Neuro: General: gait normal Speech: normal speech Extrem: General: normal to inspection Psych: Mental Status: mental status grossly normal Assessment and Plan Assessment and plan (1) Adenomatous colon polyp: Code(s): D12.6 - Benign neoplasm of colon, unspecified Status: Acute Assessment and Plan: colonoscopy
[2022-04-08 08:52] VITALS: BP 114/71; PULSE 74; RESP 12; O2SAT 100
[2022-04-08 09:02] VITALS: BP 132/85; PULSE 75; RESP 15; O2SAT 100
[2022-04-08 09:12] VITALS: BP 141/88; PULSE 62; RESP 17; O2SAT 100
--- NOTE | 2022-04-08 09:17 | SUR.PHASEII ---
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 Nehemiah(friend) was called.
== END 2022-04-08 09:26 | disposition home or self-care (01) ==
PROVIDERS: PCP Internal Medicine; Visit Provider Internal Medicine Gastroenterology
PROC: 0DJD8ZZ Inspection of Lower Intestinal Tract, Via Natural or Artificial Opening Endoscopic (ICD-10-PCS; CPT 45378; principal; 2022-04-08 08:30)
DX: Z12.11 Encounter for screening for malignant neoplasm of colon (principal); D12.2 Benign neoplasm of ascending colon; D12.0 Benign neoplasm of cecum; D12.8 Benign neoplasm of rectum; K64.8 Other hemorrhoids; F41.9 Anxiety disorder, unspecified; F32.A Depression, unspecified; Z79.01 Long term (current) use of anticoagulants; Z87.891 Personal history of nicotine dependence
CPT/HCPCS: 45380; 45385; 88305; J2704; J7120

== ENCOUNTER 2022-05-06 15:03 | Outpatient (CLI) | payer BC, SELFPAY | END 2022-05-06 15:04 | disposition home or self-care (01) | PROVIDERS: PCP Internal Medicine | DX: Z86.711 Personal history of pulmonary embolism (principal) | CPT/HCPCS: 36415; 85380 ==

== ENCOUNTER → 2022-11-04 11:14 | Outpatient (CLI) | payer BC, SELFPAY ==
--- NOTE | ~2022-11-04 | MM_ITS ---
EXAMINATION: MM screening benjamin BI w karen HISTORY: Screening mammogram TECHNIQUE: Craniocaudal and mediolateral oblique 3-D tomosynthesis images were obtained and synthetic 2-D images were generated. Bilateral rotated lateral CC views. CAD analysis was submitted and interp reted. COMPARISON: 09/03/2021, 08/21/2020, 03/11/2019 bilateral screening mammogram examinations BREAST PARENCHYMAL COMPOSITION: The breasts are heterogeneously dense, which may obscure small masses . FINDINGS: There is no evidence of suspicious mass, calcification, or architectural distortion to sugg est malignancy in either breast. There has been no suspicious interval change. IMPRESSION: 1. No mammographic evidence of malignancy. 2. Recommend routine screening mammography in one year. BI-RADS Category 1: Negative Reviewed, dictated and finalized at location A.
== END ==
PROVIDERS: PCP Nurse Practitioner Obstetrics & Gynecology; Visit Provider Nurse Practitioner Obstetrics & Gynecology
DX: Z12.31 Encounter for screening mammogram for malignant neoplasm of breast (principal)
CPT/HCPCS: 77063; 77067

== ENCOUNTER 2022-11-11 10:18 | Outpatient (CLI) | payer BC, SELFPAY ==
--- NOTE | ~2022-11-11 | CT_ITS ---
EXAMINATION:CT lung screening DATE: 11/11/2022 10:34 INDICATION: Personal history of nicotine dependence. Smoker who quit 6 months ago with 40 pack year h istory. TECHNIQUE: Computed tomography (CT) of the chest was performed without intravenous contrast. Automate d exposure control and iterative reconstruction technique were employed. The dose-length product (DLP ) was 51.92 mGy-cm. COMPARISON: Chest CT 09/30/2021 FINDINGS: There is mild scarring at the lung apices. There is mild emphysema. There is mild periphera l scarring in right lower lobe. No pleural effusion. The heart size is normal. No pericardial effusio n. There is mild thoracic spondylosis. IMPRESSION: 1. Lung-RADS category 2: Benign appearance or behavior. Continue annual screening with noncontrast lo w-dose chest CT in 12 months. Reviewed, dictated and finalized at location E. IMPRESSION: 1. Lung-RADS category 2: Benign appearance or behavior. Continue annual screeni ng with noncontrast low-dose chest CT in 12 months.
== END 2022-11-11 10:19 | disposition home or self-care (01) ==
LOC: CHSIMG 10:20
PROVIDERS: PCP Internal Medicine; Visit Provider Internal Medicine
DX: Z12.2 Encounter for screening for malignant neoplasm of respiratory organs (principal); Z87.891 Personal history of nicotine dependence
CPT/HCPCS: 71271

== ENCOUNTER 2023-11-16 09:55 | Outpatient (CLI) | payer BC, SELFPAY ==
--- NOTE | ~2023-11-16 | CT_ITS ---
CT Scan of the Chest without Contrast: Clinical Indication: Lung cancer screening, nicotine dependence Technique: Contiguous sections were acquired throughout the chest without intravenous contrast. Dose reduction technique was used on this scan by utilizing automated exposure control and iterative recon struction technique. The dose-length product (DLP) was 56.10 mGy-cm. COMPARISON: 11/11/2022 Findings: There is no evidence of any significant mediastinal, hilar or axillary lymphadenopathy. The mediastin al soft tissues appear normal. There is no evidence of pleural or pericardial effusion. There is chronic right basilar atelectasis or scarring. No discrete pulmonary nodule evident. Images through the upper abdomen reveal no abnormalities. Impression: Lung RADS 2: Benign appearance. 12 month follow-up screening CT advised. Reviewed, dictated and finalized at [facility]. Impression: Lung RADS 2: Benign appearance. 12 month follow-up screening CT advised.
== END 2023-11-16 09:56 | disposition home or self-care (01) ==
PROVIDERS: PCP Internal Medicine; Visit Provider Internal Medicine
DX: Z12.2 Encounter for screening for malignant neoplasm of respiratory organs (principal); Z87.891 Personal history of nicotine dependence
CPT/HCPCS: 71271

== ENCOUNTER 2023-12-31 10:05 | Outpatient (CLI) | payer BC, SELFPAY ==
--- NOTE | ~2023-12-31 | MM_ITS ---
EXAMINATION: MM screening benjamin BI w karen HISTORY: Screening mammogram TECHNIQUE: Craniocaudal and mediolateral oblique 3-D tomosynthesis images were obtained and synthetic 2-D images were generated. CAD analysis was submitted and interpreted. COMPARISON: 11/04/2022, 09/03/2021, 08/21/2020 BREAST PARENCHYMAL COMPOSITION:Dense: The breasts are heterogeneously dense, which may obscure small masses. FINDINGS: No suspicious mass, calcification, or architectural distortion are identified in either soren ast to suggest malignancy. There has been no suspicious interval change. IMPRESSION: No mammographic evidence of malignancy. Recommend routine screening mammography in one year. BI-RADS Category 1: Negative Reviewed, dictated and finalized at location . ICATION WELDER
== END 2023-12-31 10:06 | disposition home or self-care (01) ==
PROVIDERS: PCP Obstetrics & Gynecology; Visit Provider Obstetrics & Gynecology
DX: Z12.31 Encounter for screening mammogram for malignant neoplasm of breast (principal)
CPT/HCPCS: 77063; 77067

== ENCOUNTER 2024-05-04 08:42 | Outpatient (CLI) | payer BC, SELFPAY ==
--- NOTE | ~2024-05-04 | XR_ITS ---
XR hip RT min 2V Ordering provider: Niall Lott MD History: . Right hip pain,NKI,CHRONIC . Comparison: None. FINDINGS: BONES: No acute fracture or dislocation. HIP JOINT SPACES: Slight narrowing of the joint space suggestive of mild osteoarthritic changes. SACROILIAC JOINT SPACES/LUMBAR SPINE: The sacroiliac joint spaces are normal. Normal visualized lower lumbar spine. PUBIC SYMPHYSIS: Normal. SOFT TISSUES: Normal. IMPRESSION: No acute osseous abnormality pelvis and right hip. Mild osteoarthritic changes of the right hip. Reviewed, dictated and finalized at location A.
--- OUTSIDE RECORDS SUMMARY | 2024-05-04 09:05 | XMS_ITS | Encounter Summary ---
Author Organization [facility] Address [address] [place] [address] Phone Care Team Providers Care Crisis Counselor Name Role Phone Niall Lott MD Primary Care Provider [phone] Encounter Details Date Type Department Care Team (Latest Contact Info) Description 10/23/2021 Orders Only [facility] Scanning, Provider Social History Tobacco Use Types Packs/Day Years Used Date Smoking Tobacco: Light Smoker Cigarettes Smokeless Tobacco: Never Comments:less than daily smo ker AUDIT-C Answer Date Recorded Q1: How often do you have a drink containing alcohol? 4 or more times a week 09/17/2021 Q2: How many drinks containi ng alcohol do you have on a typical day when you are drinking? 1 or 2 Q3: How often do you have si x or more drinks on one occasion? 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 Author CCM Chronic Pain Care Plan Chronic Care Management Improving( 12:18 PM CDT) Francesca Soni, OPAL Note: Problem: Chronic Pain Goals: 1. Minimize further functional decline 2. Maximize quality of life 3. Control pain Strategies: - Activity/exercise program recommendation - Conservative stepwise pain medicine strategy with multi-disciplinary approach - Recommend healthy lifestyle strategies and compensatory methods as needed documented as of this encounter Procedures Procedure Name Priority Date/Time Associated Diagnosis Comments SCAN - LABS 10/23/2021 documented in this encounter Results * SCAN - LABS (10/23/2021) us Provider Scanning Final Result documented in this encounter Visit Diagnoses Not on filedocumented in this encounter Care Teams Crisis Counselor Relationship Specialty Start Date End Date Niall Lott MD PCP - General 07/30/16 documented as of this encounter
--- OUTSIDE RECORDS SUMMARY | 2024-05-04 09:05 | XMS_ITS | Referral Summary ---
Author Organization [facility] Address [address] [place] [address] Care Team Providers Care Colorist Formulator Name Role Phone Niall Lott MD Primary Care Provider [phone] Allergies Active Allergy Reactions Criticality Noted Date Comments Penicillins Hives Medium 09/17/2021 Medications ALPRAZolam (XANAX) 0.5 mg tablet Take 1 tablet (0.5 mg total) by mouth 3 (three) times a day as needed Active buPROPion XL (WELLBUTRIN XL) 300 mg 24 hr tablet Take 1 tablet (300 mg total) by mouth daily Active ibuprofen (ADVIL,MOTRIN) 200 mg tab/cap Take 1 tablet/caps ule (200 mg total) by mouth every 6 (six) hours as needed for pain Active hydrOXYzine (ATARAX) 10 mg tablet 06/16/2023 Active Active Problems Problem Noted Date Diagnosed Date Lumbar radiculopathy 02/12/2022 Spondylosis of lumbar region without myelopathy or radiculopathy 02/12/2022 Chronic bilateral low back pain without sciatica 02/12/2022 Social History Tobacco Use Types Packs/Day Years Used Date Smoking Tobacco: Former Cigarettes Smokeless Tobacco: Never Tobacco Cessation:Counseling Given: Not Answered Comments:less than daily smoker AUDIT-C Answer Date Recorded Q1: How often do you have a drink containing alcohol? 4 or more times a week 12/04/2023 Q2: How many drinks containi ng alcohol do you have on a typical day when you are drinking? 1 or 2 Q3: How often do you have si x or more drinks on one occasion? Never 12/04/2023 Hunger Vital Sign Answer Date Recorded Within the past 12 months, y ou worried that your food would run out before you got the money to buy more. Never true 06/17/19 24 Within the past 12 months, t he food you bought just didn't last and you didn't have money to get more. 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 Gender Identity Not on file Sexual Orientation Not on file Last Filed Vital Signs Vital Sign Reading Time Taken Comments Blood Pressure 167/89 12/04/2023 12:12 PM CDT Pulse 89 12/04/2023 12:12 PM CDT Temperature 36.2 C (97.1 F) 12/04/2023 12:12 PM CDT Respiratory Rate 16 12/04/2023 12:12 PM CDT Oxygen Saturation 97% 12/04/2023 12:12 PM CDT Inhaled Oxygen Concentration - - Weight 68 kg (150 lb) 12/04/2023 12:12 PM CDT Height 165.1 cm (5' 5 ) 12/04/2023 12:12 PM CDT Body Mass Index 24.96 12/04/2023 12:12 PM CDT Plan of Treatment Not on file Goals Goal Patient Goal Type Associated Problems Recent Progress Patient-Stated? Author CCM Chronic Pain Care Plan Chronic Care Management Improving( 12:18 PM CDT) No Francesca Magdaleno RN Note: Problem: Chronic Pain Goals: 1. Minimize further functional decline 2. Maximize quality of life 3. Control pain Strategies: - Activity/exercise program recommendation - Conservative stepwise pain medicine strategy with multi-disciplinary approach - Recommend healthy lifestyle strategies and compensatory methods as needed Medical Devices Implanted Type Area Desk Clerks Supervisor Device Identifier Shelf Expiration Date Model / Serial / Lot Spr Therapeutics System Sprint Percutaneous Electrical Nerve Stimulation 9170-2495 - [id number] Implanted:Qty: 1 on 10/06/2023 by Lesley Green MD at [facility] SPR [employer]ER[employer] 04/15/2024 9288-600 2 / / [id number] Procedures Procedure Name Priority Date/Time Associated Diagnosis Comments MAMMOGRAPHY, TOMOGRAPHY, BILATERAL Routine 08/04/2016 3:57 PM CDT from Last 3 Months or Most Recently Relevant to Health Maintenance Results * MAMMOGRAPHY, TOMOGRAPHY, BILATERAL (08/04/2016 3:57 PM CDT) Anatomical Region Laterality Modality Breast Bilateral Mammography 08/04/2016 3:57 PM CDT Narrative 08/04/2016 3:57 PM CDT SCREENING MAMM W LILI BI Acc#: [id number] DATE OF EXAM: Aug 04 2016 EXAMINATION: Digital screening mammogram with tomosynthesis. HISTORY: Breast cancer screening PRIOR: 07/06/2015 and 02/15/2014 DENSITY: Extremely dense which may lower the sensitivity of mammography FINDINGS: Little change is noted. No new dominant mass, architectural distortion, nipple retraction, skin thickening, or suspicious calcifications are seen. IMPRESSION: BIRADS Category 1: Negative mammogram. Digital technology was employed plus computer-aided detection software (R2) was utilized in interpretation of these images. This facility utilizes a reminder system to notify patients of yearly mammograms. Electronically signed by: David Dotson M.D. Interpreting Physician: DAVID DOTSON M.D. Read on: Aug 04 2016 10:57A Transcribed by: [facility] On: Aug 04 2016 10:55A Approved Electronically by: DAVID DOTSON M.D. on: Aug 04 2016 10:55A Ordering DR: REFERRAL SELF Attending DR: DR FANY ALVAREZ Attending: DR FANY ALVAREZ Requesting: SELF, REFERRAL Requesting Fax: -- Attending Attending ID: [id number] Requesting ID: [id number] Report To 1 ID: [id number] Report To 1 Name: DR FANY ALVAREZ Report To 1 FAX: [phone] NextGen Order #: Procedure Note Miscellaneous, Not In File / Provider, MD Nasir - 08/04/2016 SCREENING MAMM W LILI BI Acc#: [id number] DATE OF EXAM: Aug 04 2016 EXAMINATION: Digital screening mammogram with tomosynthesis. HISTORY: Breast cancer screening PRIOR: 07/06/2015 and 02/15/2014 DENSITY: Extremely dense which may lower the sensitivity of mammography FINDINGS: Little change is noted. No new dominant mass, architectural distortion, nipple retraction, skin thickening, or suspicious calcifications are seen. IMPRESSION: BIRADS Category 1: Negative mammogram. Digital technology was employed plus computer-aided detection software (R2) was utilized in interpretation of these images. This facility utilizes a reminder system to notify patients of yearly mammograms. Electronically signed by: David Dotson M.D. Interpreting Physician: DAVID DOTSON M.D. Read on: Aug 04 2016 10:57A Transcribed by: [facility] On: Aug 04 2016 10:55A Approved Electronically by: DAVID DOTSON M.D. on: Aug 04 2016 10:55A Ordering DR: REFERRAL SELF Attending DR: DR FANY ALVAREZ Attending: DR FANY ALVAREZ Requesting: SELF, REFERRAL Requesting Fax: -- Attending Attending ID: [id number] Requesting ID: [id number] Report To 1 ID: [id number] Report To 1 Name: DR FANY ALVAREZ Report To 1 FAX: [phone] NextGen Order #: us Not In File Miscellaneous IMG MAMMO PROCEDURES F inal Result from Last 3 Months or Most Recently Relevant to Health Maintenance Insurance [facility] [employer] Member Subscriber Plan / Payer (Ef fective 2013-Present) Name:Jolie Huff Relation to Subscriber:Self Name:Jolie Huff Payer ID:[id number] (NAIC) Group ID:[id number] Type:[facility] Address: [facility] [id number] [id number] [facility] [employer] Care Teams Colorist Formulator Relationship Specialty Start Date End Date Niall Lott MD PCP - General 07/30/16
[2024-05-04 09:06] LABS: Add Urine Microscopic? NO; Appearance Urine Clear (Clear); Basophils Absolute Auto 0.05 K/mm3 (0.00-0.10); Basophils Percent Auto 1.3 % (0.0-1.0); Bilirubin Urine Negative (Negative); Blood Urine Negative (Negative); Color Urine Light Yellow (Yellow); Eosinophils Percent Auto 2.5 % (1.0-6.0); Glucose Urine UA Negative (Negative); Hematocrit 39.5 % (35.0-49.0); Hemoglobin 12.6 g/dL (12.0-15.0); Immature Granulocyte Absolute 0.01 K/mm3 (0.00-0.00); Immature Granulocyte Percent A 0.3 % (0.0-0.0); Ketones Urine Negative (Negative); Leukocyte Esterase Ur Negative (Negative); Lymphocytes Absolute Auto 1.86 K/mm3 (1.10-4.50); Lymphocytes Percent Auto 46.6 % (18.0-42.0); Mean Corpuscular HGB Conc 31.9 g/dL (32-36); Mean Corpuscular Hemoglobin 31.1 pg (27.0-31.0); Mean Corpuscular Volume 97.5 fL (78.0-102.0); Mean Platelet Volume 10.9 fl (9.2-11.8); Monocytes Absolute Auto 0.36 K/mm3 (0.10-0.90); Neutrophils Absolute Auto 1.61 K/mm3 (1.70-7.20); Neutrophils Percent Auto 40.3 % (50.0-70.0); Nitrate Urine Negative (Negative); Platelet Count Result 251 K/mm3 (150-420); Protein Urine Negative (Negative); Red Blood Count 4.05 M/mm3 (4.20-5.40); Red Cell Distribution Width 12.4 % (11.6-14.4); Urobilinogen Urine 0.2 mg/dL (0.2-1.0)
--- OUTSIDE RECORDS SUMMARY | 2024-05-04 09:06 | XMS_ITS | Encounter Summary ---
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
--- OUTSIDE RECORDS SUMMARY | 2024-05-04 09:06 | XMS_ITS | Clinical Summary ---
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 Gender Identity Not on file Sexual Orientation Not on file Obstetrics History Last Filed Vital Signs Vital Sign Reading [...] 12/04/2023 12:12 PM CDT Plan of Treatment Health Maintenance Due Date Last Done Comments Cervical Cancer Screening 1965 Colon Cancer Screening-Colonoscopy 1965 Depression Screening 1965 Hepatitis C Screening 1965 Hepatitis B Screening 04/11/1981 Regular Well Visit/Exam 18-64 04/11/1981 Zoster Vaccine (1 of 2) 04/11/2013 DTaP/Tdap/Td Vaccine (2 - Td or Tdap) 07/07/2023 07/06/2013 Covid-19 Vaccine (3 - season) 2023 06/08/2020, 05/17/2020 Influenza Vaccine (#1) 2023 Breast Cancer Screening-Mammogram 11/05/2023 11/04/2022, 09/03/2021, 08/21/2020, Additional history exists Pneumococcal vaccine <65 Aged Out No longer eligible based on patient's age to complete this topic Goals Goal Patient Goal Type Associated Problems Recent Progress Patient-Stated? Author CCM Chronic Pain Care Plan Chronic Care Management Improving( 12:18 PM CDT) Francesca Soni RN Note: Problem: Chronic Pain Goals: 1. Minimize further functional decline 2. Maximize quality of life 3. Control pain Strategies: - Activity/exercise program recommendation - Conservative stepwise pain medicine strategy with multi-disciplinary approach - Recommend healthy lifestyle strategies and compensatory methods as needed Medical Devices Implanted Type Area Bilingual Kindergarten Teacher Device Identifier Shelf Expiration Date Model / Serial / Lot Spr Therapeutics System Sprint Percutaneous Electrical Nerve Stimulation [id number] - [id number] Implanted:Qty: 1 on 10/06/2023 by Lesley Green MD at [facility] [employer] 04/15/2024 9288-600 2 / / [id number] Procedures Procedure Name Priority Date/Time Associated Diagnosis Comments MAMMOGRAPHY, TOMOGRAPHY, BILATERAL Routine 08/04/2016 3:57 PM CDT from Last 3 Months or Most Recently Relevant to Health Maintenance Results * MAMMOGRAPHY, TOMOGRAPHY, BILATERAL (08/04/2016 3:57 PM CDT) Anatomical Region Laterality Modality Breast Bilateral Mammography 08/04/2016 3:57 PM CDT Narrative 08/04/2016 3:57 PM CDT SCREENING MAMM W LILI BI Acc#: [id number] DATE OF EXAM: Aug 04 2016 EXAMINATION: [...] by: David Dotson M.D. Interpreting Physician: DAVID DOSTON M.D. Read on: Aug 04 2016 10:57A Transcribed by: [facility] On: Aug 04 2016 10:55A Approved Electronically by: DAVID DOTSON M.D. on: Aug 04 2016 10:55A Ordering DR: REFERRAL SELF Attending DR: DR FANY ALVAREZ Attending: DR FANY ALVAREZ Requesting: SELF, REFERRAL Requesting Fax: -- Attending Attending ID: [id number] Requesting ID: [id number] Report To 1 ID: [id number] Report To 1 Name: DR FANY ALVAREZ Report To 1 FAX: [phone] NextGen Order #: Procedure Note Miscellaneous, Not In File / Provider, MD Nasir - 08/04/2016 SCREENING MAMM W LILI BI Acc#: [id number] DATE OF EXAM: Aug 04 2016 EXAMINATION: [...] on: Aug 04 2016 10:57A Transcribed by: [facility] On: Aug 04 2016 10:55A Approved Electronically by: DAVID DOTSON M.D. on: Aug 04 2016 10:55A Ordering DR: REFERRAL SELF Attending DR: DR FANY ALVAREZ Attending: DR FANY ALVAREZ Requesting: SELF, REFERRAL Requesting Fax: -- Attending Attending ID: [id number] Requesting ID: [id number] Report To 1 ID: [id number] Report To 1 Name: DR FANY ALVAREZ Report To 1 FAX: [phone] NextGen Order #: us Not In File Miscellaneous IMG MAMMO PROCEDURES F inal Result from Last 3 Months or Most Recently Relevant to Health Maintenance Insurance [facility] Care Teams Machine Stacker Relationship Specialty Start Date End Date Niall Lott MD PCP - General 07/30/16
--- OUTSIDE RECORDS SUMMARY | 2024-05-04 09:06 | XMS_ITS | Encounter Summary ---
Author Organization [facility] Address [address] [place] [address] Care Team Providers Care Product Promoter Retail Pet Name Role Phone Niall Lott MD Primary Care Provider [phone] Encounter Details Date Type Department Care Team (Late st Contact Info) Description 01/10/2022 Telephone [facility] [address] [facility] [address] [place], [place] [id number] Lesley Green MD [address] [facility] [address] [facility] [phone] [place], [place] [id number] Social History Tobacco Use Types Packs/Day Years [...] on file 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
--- OUTSIDE RECORDS SUMMARY | 2024-05-04 09:06 | XMS_ITS | Clinical Summary ---
Author Organization [facility] / [facility] Address [facility] [place] [address] Care Team Providers Care Internet Ecommerce Specialist Name Role Phone Niall Lott MD Primary Care Provider [phone] Allergies Active Allergy Reactions Criticality Noted Date Comments Penicillins Hives Medium 09/17/2021 Medications buPROPion XL 150 MG 24 hr tablet Take 150 mg by mouth daily. Active ALPRAZolam (XANAX) 0.5 MG tablet Take 0.5 mg by mouth 3 (three) times daily as needed. FOR ANXIETY 01/20/2022 Active ELIQUIS 5 MG tablet Take 5 mg by mouth 2 (two) times daily. 01/07/2022 Active ibuprofen (MOTRIN) 200 MG tablet Take 200 mg by mouth every 6 (six) hours as needed. Active Family History Medical History Relation Comments No Known Problems Father No Known Problems Mother Relation Status Comments Father Mother Social History Tobacco Use Types Packs/Day Years Used Date Smoking Tobacco: Some Days Cigarettes Smokeless Tobacco: Never Tobacco Cessation:Ready to Q uit: No; Counseling Given: Yes Alcohol Use Standard Drinks/Week Comments Yes 16.7 (1 standard drink = 0.6 oz pure alcohol) PHQ-2 Answer Date Recorded Patient Health Questionnaire-2 Score 0 02/14/2022 Comments No Sex and Gender Information Value Date Recorded Sex Assigned at Not on file Legal Sex Female 12:29 PM CDT Gender Identity Not on file Sexual Orientation Not on file Last Filed Vital Signs Vital Sign Reading Time Taken Comments Blood Pressure 134/86 02/14/2022 9:52 AM SWEDGER Pulse 75 02/14/2022 9:52 AM SWEDGER Temperature 36.4 C (97.6 F) 02/14/2022 9:52 AM SWEDGER Respiratory Rate 18 02/01/2022 1:45 PM SWEDGER Oxygen Saturation 98% 02/14/2022 9:52 AM SWEDGER Inhaled Oxygen Concentration - - Weight 67.7 kg (149 lb 3.2 oz) 02/14/2022 9:52 A M SWEDGER Height 167.6 cm (5' 6 ) 02/14/2022 9:52 AM SWEDGER Body Mass Index 24.08 02/14/2022 9:52 AM SWEDGER Plan of Treatment Health Maintenance Due Date Last Done Comments Colorectal Cancer Screening Colonoscopy (10 Years) 1963 Annual Physical 04/11/1966 Pneumococcal Vaccine: Pediatrics (0 to 5 Years) and At-Risk Patients (6 to 64 Years) (1 of 2 - PCV) 04/11/1969 Hepatitis C 04/11/1981 DTaP, Tdap and Td Vaccines ( 1 - Tdap) 04/11/1982 Mammogram Screening 2003 Zoster Vaccines (1 of 2) 04/11/2013 COVID-19 Vaccine (3 - 2023-2 5 season) 2023 06/08/2020, 05/17/2020 Influenza Adult (#1) 2023 Cervical Cancer Screening Pa p Smear (Age 30 to 64) Every 3 Years 01/14/2025 01/14/2022 Cervical Cancer Screening Pa p with HPV Testing (Age 30 to 64) Every 5 Years 01/14/2027 01/14/2022 Cervical Cancer Screening wi th HPV 01/14/2027 RSV Immunization or 60+ Years (1 - 1-dose 75+ series) 04/11/2038 Meningococcal B Vaccine Aged Out No l onger eligible based on patient's age to complete this topic Meningococcal Vaccine Aged Out No cecily marcelle eligible based on patient's age to complete this topic RSV Immunizations Under 20 Months Aged Out No longer eligible b ased on patient's age to complete this topic [place] [address] [place] [address] Care Teams Internet Ecommerce Specialist Relationship Specialty Start Date End Date Niall Lott MD [address] [place] [address] PCP - General INTERNAL MEDICINE 02/01/22
--- OUTSIDE RECORDS SUMMARY | 2024-05-04 09:06 | XMS_ITS | Data Portability ---
Author Organization [facility] [place] Address [address] [place] [address] [place] [address] Care Team Providers Care Research Group Director Name Role Phone DARLING DOLAN Primary Care Provider [phone] Assessment Encounter Date Assessment Date Assessment LastModified by Organization Details LastModified Time 02/17/2023 02/17/2023 Annual gynecological exam performed. Patient will come back in a year unless there are new symptoms. [email or web address] Not available 02/17/2023 11:34:59 02/22/2024 02/22/2024 Annual gynecological exam performed. Patient will come back in a year unless there are new symptoms. [email or web address] Not available 02/19/2024 10:35:51 Plan of Treatment Reminders Order Date Submit Date Provider Last Modified By Organization Details Last Modified Time Details Appointments None recorded. Lab pap, IG + HR HPV - HPV regardless but if HPV is positive need subtyping 16,18/45 2024 025 [facility] (Lab), [address], [place], [address], 13:05:31 Referral None recorded. Procedures None recorded. Surgeries None recorded. Imaging MAMMO, screening, digital, bilateral 2024 025 [facility], [address], [place], [address], 5 04:02:17 DEXA, axial skeleton + vertebral fracture assessment 2024 025 [facility], [address], [place], [address], 5 04:02:18 MAMMO, screening, bilateral 2023 024 [facility], [address], [place], [address], 4 14:15:15 Medication Orders None recorded. Patient TargetsNo targets recorded. Patient InstructionsNo instructions recorded. Reason for Referral None Reported. 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 Atrop hic cell zeeshan nelson. Elect yasir arauz myriam d by [employer], CT on 2023 at 10:54 AM ----- ----- ----- ----- ----- ----- ----- ----- ----- ----- ----- ----- ----- ----- ----- ----- ----- ---- HPV RESUL TS: HPV mRNA E6/E7 : Posit esequiel - HPV mRNA Detec nir HPV GENOT YPE 16 (ROSANGELA) : Detec nir HPV GENOT YPE 18/45 (ROSANGELA) : Not Detec nir NOTE: This high risk HPV mRNA assay detec ts fourt een high- risk HPV types (16, 18, 31, 33, 35, 39, 45, 51, 52, 56, 58, 59, 66, 68) witho ut diffe renti ation . This assay can diffe renti ate HPV 16 from HPV 18/45 , but does not diffe renti ate betwe en HPV 18 and HPV 45. A negat esequiel HPV 16, 18/45 genot ype assay resul t does not exclu de the possi bilit y of cytol ogic abnor malit ies or of futur e or under lying SALENA 1, SALENA 3 or cance r. COMME NT: This speci men was revie wed by a Cytot echno logis t and/o r Patho logis t (as indic ated in this repor t) after evalu ation using the Thinp rep Imagi ng Syste m. CLINI MAXIMILIANO INFOR MATIO N: Menst rual Statu s: LMP (if appli cable ): Clini maximiliano Histo ry/Pr eviou s Pap: Type of Neopl frieda (if appli cable ): Signi fican t Clini maximiliano Findi ngs: Other Histo ry: Hormo riana (if appli cable ): PAP EDUCA DIGNA L NOTE: The Pap Test is a scree rajani test with an inher ent false negat esequiel rate. Liqui d-bas ed sampl ing may decre ase, but will not elimi dhiraj, false negat esequiel resul ts. A negat esequiel resul t does not precl ude the prese nce and/o r devel opmen t of disea se, since the prese nce of abnor mal cells in the sampl e depen ds on the locat ion of the lesio n and sampl ing techn ique. Hortencia nued regul ar scree rajani is the best metho d of cance r preve ntion . If repor nir cytol ogic findi ng do not corre late with physi maximiliano and/o r histo rical findi ngs, furth er inves tigat ion is recom sandra d, as clini monica whittington nted. Not Available [facility] (Lab) [address], [place], [address], 02/20/2023 14:41:43 02/21/19 25 02/22/2024 IMAGE GUIDE D PAP AND HPV REGAR DLESS image guided Pap, HPV regardless of Pap result SEE RESULT S BELOW CASE REPOR T: Cytol ogy Gynec ologi maximiliano Repor t Case: [id number] Autho rimohamudn g Provi elicia: Dermo dy, Francesca , ANP, STONE LAYER Colle cted: 02/21 1138 Order ing Locat ion: [place] Patho [place]y Recei jacob: 02/22 0141 First Scree n: Yanique Gray, CT Rescr een: Sg Brothers, CT Speci men: Scree rajani Pap - Image d, Cervi x STATE MENT OF ADEQU ACY: Satis facto ry for evalu ation Trans forma tion zone compo nent canno t be defin itive ly ident ified due to the prese nce of atrop hy or other hormo nal dhaliwal es ----- ----- ----- ----- ----- ----- ----- ----- ----- ----- ----- ----- ----- ----- ----- ----- ----- ---- FINAL DIAGN OSIS: Negat esequiel for Intra epith elial Lesio n or Merle rodríguez (NIL) . Atrop hic cell zeeshan nelson. Elect yasir dodson by [employer], CT on 2024 at 1201 SENIOR INSIGHT MANAGER INTERNATIONAL ----- ----- ----- ----- ----- ----- ----- ----- ----- ----- ----- ----- ----- ----- ----- ----- ----- ---- HPV RESUL TS: HPV mRNA E6/E7 : No HPV mRNA Detec nir NOTE: This high risk HPV mRNA assay detec ts fourt een high- risk HPV types (16, 18, 31, 33, 35, 39, 45, 51, 52, 56, 58, 59, 66, 68) witho ut diffe renti ation . COMME NT: This speci men was revie wed by a Cytot echno logis t and/o r Patho logis t (as indic ated in this repor t) after evalu ation using the Thinp rep Imagi ng Syste m. CLINI MAXIMILIANO INFOR MATIO N: Menst rual Statu s: LMP (if appli cable ): Clini maximiliano Histo ry/Pr eviou s Pap: Type of Neopl frieda (if appli cable ): Signi fican t Clini maximiliano Findi ngs: Other Histo ry: Hormo riana (if appli cable ): PAP EDUCA DIGNA L NOTE: The Pap Test is a scree rajani test with an inher ent false negat esequiel rate. Liqui d-bas ed sampl ing may decre ase, but will not elimi dhiraj, false negat esequiel resul ts. A negat esequiel resul t does not precl ude the prese nce and/o r devel opmen t of disea se, since the prese nce of abnor mal cells in the sampl e depen ds on the locat ion of the lesio n and sampl ing techn ique. Hortencia nued regul ar scree rajani is the best metho d of cance r preve ntion . If repor nir cytol ogic findi ng do not corre late with physi maximiliano and/o r histo rical findi ngs, furth er inves tigat ion is recom sandra d, as clini monica whittington nted. Not Available [facility] (Lab) [address], [place], [address], 02/29/2024 13:05:31 11/05/19 23 11/04/2022 MAMMO , scree rajani, bilat eral No observ ation record ed. [email or web address] [facility] [address], [place], [address], 02/17/2023 12:04:58 12/31/19 24 12/31/2023 MAMMO , scree rajani, bilat eral No observ ation record ed. [email or web address] [facility] [address], [place], [address], 12/31/2023 14:15:15 Result Notes None recorded. Problems Name Problem SNOMED Code Status Onset Date Resolution Date Notes Provider Name and Address Organization Details Recorded Time SNOMED CT Concept Completed 201701/07/2021 Encntr for general adult medical exam w/o abnormal findings ;Practic e ID: [id number] Christin torres [facility] 16:25:[address] Concept Completed 201701/07/2021 Encntr for principal planner exam (general ) (routine ) w/o abn findings ;Practic e ID: 0001 Christin torres [facility] 16:25:54 Screenin g for malignan t neoplasm of rectum Completed 201701/07/2021 Encounte r for screenin g for malignan t neoplasm of rectum;P ractice ID: 0001 Christin torres [facility] 16:25:49 Removal of intraute rine device Completed 201701/07/2021 Encounte r for removal of intraute rine contrace ptive device;P ractice ID: 0001 Christin [facility] 16:25:46 Evaluati on finding Completed 201801/07/2021 Unsp abnormal cytolog findings in specmn from cervix uteri;Pr actice ID: 0001 Christin torres [facility] 16:25:33 Pregnanc y test negative [id number] Completed 201801/07/2021 Encounte r for pregnanc y test, result negative ;Practic e ID: 0001 Christin [facility] 16:25:43 Mammogra phy abnormal [id number] Completed 201401/07/2021 Unspecif ied abnormal mammogra m;Record ed Elsewher e: No Locat ion: [facility] S ource: EHR Property Portfolio Officer lisa: N Dhaval ce ID: 0001 Tom lable Time: 01:03:39 PM Christin Bowen [facility] 16:25:40 Insertio n of intraute rine contrace ptive device Completed 201101/07/2021 INSERTIO N OF IUD;Lalo rded Elsewher e: No Locat ion: [facility] S ource: EHR Property Portfolio Officer lisa: N Dhaval ce ID: 0001 Tom lable Time: 08:15:00 AM Christin Bowen [facility] 16:25:37 Speciali zed medical examinat ion Completed 201301/07/2021 Gynecolo gical Examinat ion;Lalo rded Elsewher e: No Locat ion: [facility] S ource: EHR Property Portfolio Officer lisa: N Dhaval ce ID: 0001 Tom lable Time: 02:00:00 PM Christin Bowen [facility] 16:25:56 Menopaus al symptom [id number] Completed 201301/07/2021 Menopaus e syndrome ;Recorde d Elsewher e: No Locat ion: [facility] S ource: EHR Property Portfolio Officer lisa: N Doreenti ce ID: 0001 Tom lable Time: 02:00:00 PM Christin Bowen [facility] 16:25:42 Low grade squamous intraepi thelial lesion on cervical Papanico laou smear [id number] Completed 201801/07/2021 Low grade intrepit h lesion cyto smr crvx (LGSIL); Recorded Elsewher e: No Locat ion: [facility] S ource: EHR Property Portfolio Officer lisa: N Doreenti ce ID: 0001 Tom lable Time: 02:45:00 PM Christin Bowen [facility] 16:25:38 Benign essentia l hyperten giorgi [id number] Completed 201301/07/2021 Benign essentia l hyperten giorgi;Rec orded Elsewher e: No Locat ion: [facility] S ource: EHR Property Portfolio Officer lisa: N Practi ce ID: 0001 Tom lable Time: 02:00:00 PM Christin [facility] 16:25:30 Proteinu kiera [id number] Completed 201301/07/2021 Proteinu kiera;Lalo rded Elsewher e: No Locat ion: [facility] S ource: EHR Property Portfolio Officer lisa: N Practi ce ID: 0001 Tom lable Time: 02:00:00 PM Christin Bowen [facility] 16:25:45 Screenin g for malignan t neoplasm of cervix Completed 201001/07/2021 Screenin g for malignan t neoplasm s of the cervix;R ecorded Elsewher e: No Locat ion: [facility] S ource: EHR Property Portfolio Officer lisa: N Practi ce ID: 0001 Tom lable Time: 10:45:00 AM Christin Bowen [facility] 16:25:48 Sexually transmit nir infectio us disease [id number] Completed 201301/07/2021 SPECIAL SCREEN EXAM HPV;Lalo rded Elsewher e: No Locat ion: [facility] S ource: EHR Property Portfolio Officer lisa: N Practi ce ID: 0001 Tom lable Time: 02:00:00 PM Christin [facility] 1 16:25:51 Adult health examinat ion Completed 201301/07/2021 ROUTINE MEDICAL EXAM;Rec orded Elsewher e: No Locat ion: [facility] S ource: EHR Property Portfolio Officer lisa: N Practi ce ID: 0001 Tom lable Time: 02:00:00 PM Christinvamsi [facility], [facility] 16:25:28 Dysfunct ional uterine bleeding Completed 201101/07/2021 Other disorder s of menstrua tion and other abnormal bleeding from female genital tract;Re corded Elsewher e: No Locat ion: [facility] S ource: EHR Property Portfolio Officer lisa: N Dhaval ce ID: 0001 Tom lable Time: 02:45:00 PM Christin [facility], [facility] 1 16:25:31 Problem Notes None recorded. Procedures Surgical History Date Name Laterality Status Provider Name and Address Organization Details Recorded Time 12/31/19 24 Date of Last Mammogram completed [facility] 02/19/2024 10:38:10 02/17/19 24 Date of Last Pap Smear completed Yee [facility] 02/19/2024 10:37:32 02/19/19 23 Colposcopy completed Maddi Hobbs [facility] 02/17/2023 11:31:59 02/19/19 23 CONIZATION OF CERVIX (SURG) completed Paty Shaw [facility] 02/20/2022 11:30:00 02/07/20 21 Colposcopy completed JULES Romero- [address], [place], [address], [facility] 02/06/2021 17:46:42 02/07/20 21 Colposcopy completed Christin Bowen [facility] 02/07/2021 11:49:01 02/09/19 21 colonoscopy completed Mirta Mckinney, [facility]- [address], [place], [address], [facility] 01/08/2021 13:14:19 02/14/19 20 completed [facility] 01/08/2021 12:58:02 02/14/19 20 Date of Last Colonoscopy completed [facility] 01/08/2021 12:58:02 02/09/19 06 osteoplasty of clavicle completed Lawanda Dunn [facility] 01/14/2022 12:13:08 Imaging Results Imaging Date Name Status LastModified by Organiz ation Details LastModified Time 11/04/2022 MAMMO, screening, bilateral completed [address] [facility] [address], [place], [address], 02/17/2023 12:04:58 12/31/2023 MAMMO, screening, bilateral completed [email or web address] [place] [address] Imaging [address], [place], [address], 12/31/2023 14:15:15 Procedure Notes None recorded. Medical Equipment None Reported. Allergies Allergen ID Allergen Name Allergen Category Reaction Reaction Severity Criticality Documentation Date Start Date Code Code System Note Provider Name and Address Organization Details Recorded Time 59706 Product containin g penicilli n (product) medicatio n Not available Not available Not available 01/27/2020 80248 8001 SNOMED Comme nt: [facility]at [facility]; Not Available [facility] 0 14:20:43 Medications Name Sig Start Date Stop Date Status Note LastModified by Organization Details LastModified Time cyclobenz aprine 10 mg tablet 02/06 completed Not Available Not Available Not Available methocarb nancy 500 mg tablet TAKE 1 TABLET BY MOUTH THREE TIMES A DAY 02/17 completed Not Available Not Available Not Available bupropion HCl SR 150 mg tablet,12 hr sustained -release TAKE 1 TABLET BY MOUTH TWICE A DAY 02/17 completed Not Available Not Available Not Available azithromy salena 250 mg tablet TAKE 2 TABLETS BY MOUTH TODAY, THEN TAKE 1 TABLET DAILY FOR 4 DAYS 01/14 completed Not Available Not Available Not Available hydrocodo ne 5 mg-acetam inophen 325 mg tablet TAKE 1 TABLET BY MOUTH EVERY 4 HOURS NEEDED FOR PAIN 02/17 completed Not Available Not Available Not Available meloxicam 15 mg tablet 02/06 completed Not Available Not Available Not Available Effexor XR 37.5 mg capsule,e xtended release take 1 capsule (37.5MG) by oral route every day with food 06/26 completed Prescrib ed Elsewher e: No Locat ion: [facility] odify By: tiffanie vera DateTime : 01/16/20 11 10:45:00 AM Not Available Not Available Not Available famotidin e 40 mg tablet 02/06 completed Not Available Not Available Not Available prednison e 20 mg tablet 01/07 completed Not Available Not Available Not Available omeprazol e 40 mg capsule,d elayed release 01/08 completed Not Available Not Available Not Available alprazola m 0.5 mg tablet TAKE 1 TABLET TWICE A DAY BY ORAL ROUTE FOR 90 DAYS. 02/21 completed Not Available Not Available Not Available Metrogel Vaginal 0.75 % (37.5 mg/5 gram) insert 1 applicat orful (37.5MG) by vaginal route every day at bedtime 02/26 completed Prescrib ed Elsewher e: No [facility] odify By: ewa vera DateTime : 01/25/20 11 09:12:24 AM Not Available Not Available Not Available benzonata te 100 mg capsule TAKE 2 CAPSULES BY MOUTH 3 TIMES A DAY NEEDED FOR COUGH 01/14 completed Not Available Not Available Not Available Xanax 0.25 mg tablet take 1 tablet by oral route 3 times every day 01/08 completed Prescrib ed Elsewher e: Yes Loca tion: [facility] odify By: ewa vera DateTime : 01/16/20 11 10:45:00 AM Not Available Not Available Not Available Banophen 25 mg capsule 02/06 completed Not Available Not Available Not Available Wellbutri n 100 mg tablet take 1 tablet by oral route 2 times every day 01/08 completed Prescrib ed Elsewher e: Yes [facility] odify By: tiffanie vera DateTime : 06/27/19 16 02:00:00 PM Not Available Not Available Not Available methylpre dnisolone 4 mg tablets in a dose pack TAKE 6 TABLETS ON DAY 1 DIRECTED ON PACKAGE AND DECREASE BY 1 TAB EACH DAY FOR A TOTAL OF 6 DAYS 01/14 completed Not Available Not Available Not Available Vitamin D2 1,250 mcg (50,000 unit) capsule take 1 capsule by oral route every week 01/08 completed Prescrib ed Elsewher e: No Locat ion: [facility] odify By: ewa vera DateTime : 02/24/19 15 10:54:17 AM Not Available Not Available Not Available hydroxyzi ne HCl 10 mg tablet TAKE 1 TABLET BY MOUTH THREE TIMES A DAY NEEDED FOR 30 DAYS 02/21 completed Not Available Not Available Not Available escitalop lorraine 10 mg tablet TAKE 1 TABLET BY MOUTH EVERY DAY FOR 30 DAYS 02/21 completed Not Available Not Available Not Available Premarin 0.625 mg/gram vaginal cream Insert 0.5gm vaginall y nightly x 14 days then, use 2x/wk for maintena nce. 02/06 completed Not Available Not Available Not Available bupropion HCl XL 300 mg 24 hr tablet, extended release TAKE 1 TABLET BY MOUTH EVERY DAY active Not Available Not Available No t Available Suprep Bowel Prep Kit 17.5 gram-3.13 gram-1.6 gram oral solution 01/08 completed Not Available Not Available Not Available Eliquis 5 mg tablet TAKE 1 TABLET BY MOUTH TWICE A DAY 02/17 completed Not Available Not Available Not Available Vitals Date Recorded Body height Body mass index (BMI) Body weight Systolic blood pressure Diastolic blood pressure Provider Name and Address Organization Details Last Updated DateTime 02/15/2022 165.74 cm 24.6 kg/m2 11147.26 g 140 mm[Hg] 80 mm[Hg] Jayne Kraft [facility] 3 12:58:54 Date Recorded Body height Body mass index (BMI) Body weight Systolic blood pressure Diastolic blood pressure Provider Name and Address Organization Details Last Updated DateTime 02/27/2022 165.74 cm 24.6 kg/m2 74255.26 g 142 mm[Hg] 88 mm[Hg] Anna Osman [facility] 3 12:24:30 Date Recorded Body height Body mass index (BMI) Body weight Systolic blood pressure Diastolic blood pressure Provider Name and Address Organization Details Last Updated DateTime 02/17/2023 165.74 cm 24.9 kg/m2 40458.45 g 129 mm[Hg] 81 mm[Hg] Maddi Bedollaer [facility] 4 11:36:50 Date Recorded Body height Body mass index (BMI) Body weight Systolic blood pressure Diastolic blood pressure Provider Name and Address Organization Details Last Updated DateTime 02/22/2024 165.74 cm 26.2 kg/m2 58789.75 g 148 mm[Hg] 89 mm[Hg] Yee [place] [facility] 5 11:33:51 Social History Question Answer Notes LastModified by Organizat ion Details LastModified Time Tobacco Smoking Status Current Some Day Smoker Less than 0-3 per week Hawk torres [facility] 02/15/2022 12:55:18 Do You Have An Advance Directive? No Information not available 01/08/2021 What Is Your Level Of Alcohol Consumption? Occasional Information not available 01/08/2021 How Many Years Have You Consumed Alcohol? 30 Information not available 01/08/2021 Are You Blind Or Do You Have Difficulty Seeing? No Information not available 01/08/2021 What Is Your Level Of Caffeine Consumption? Moderate Information not available 01/08/2021 How Much Tobacco Do You Chew? None Information not available 01/08/2021 In The 14 Days Before Symptom Onset, Have You Had Close Contact With A Laboratory-confir med COVID-19 While That Case Was Ill? No Information not available 01/08/2021 In The 14 Days Before Symptom Onset, Have You Had Close Contact With A Person Who Is Under Investigation For COVID-19 While That Person Was Ill? No Information not available 01/08/2021 Have You Been To An Area Known To Be High Risk For COVID-19? No Information not available 01/08/2021 Are You Deaf Or Do You Have Serious Difficulty Hearing? No Information not available 01/08/2021 What Type Of Diet Are You Following? CARBOHYDRATE Information not available 01/08/2021 What Is The Highest Grade Or Level Of School You Have Completed Or The Highest Degree You Have Received? [id number] Information not available 01/08/2021 What Is Your Occupation? Retired Information not available 01/08/2021 Are There Any Guns Present In Your Home? Yes Information not available 01/08/2021 Do You Use Protection During Sex? No Information not available 01/08/2021 Do You Use Your Seat Belt Or Car Seat Routinely? Yes Information not available 01/08/2021 Do You Have Smoke And Carbon Monoxide Detectors In Your Home? Yes Information not available 01/08/2021 At What Age Did You Start Smoking Tobacco? 28 Information not available 01/08/2021 How Much Tobacco Do You Smoke? 2 PPW Information not available 02/06/2021 Do You Feel Stressed (tense, Restless, Nervous, Or Anxious, Or Unable To Sleep At Night)? [email or web address] Information not available 01/14/2022 Do You Use Any Illicit Or Recreational Drugs? No Information not available 01/08/2021 Do You Use Sunscreen Routinely? No Information not available 01/08/2021 Has Tobacco Cessation Counseling Been Provided? Yes Information not available 02/15/2022 How Many Years Have You Smoked Tobacco? 25 Information not available 01/08/2021 Have You Used IV Drugs? No Information not available 01/08/2021 Do You Or Have You Ever Used Any Other Forms Of Tobacco Or Nicotine? No [email or web address] Information not available 02/15/2022 Sex: Unknown Functional Status Question Answer Note LastModified by Organizat ion Details LastModified Time Do you have difficulty walking or climbing stairs? No [email or web address] Information not available 02/15/2022 Are you able to walk? YESWOREST Information not available 01/08/2021 Are you able to care for yourself? Yes [email or web address] Information not available 02/15/2022 Do you have difficulty dressing or bathing? No Information not available 02/15/2022 What is your exercise level? Moderate Information not available 01/08/2021 Mental Status None recorded. Family History Relationship Description Onset Age of this Age Resolved Age Notes LastModified by Organization Details LastModified Time Maternal Grandfather Malignant tumor of prostate [email or web address] Not available 2022 12:55:17 Father Disease of liver Not available 2022 12:55:17 Maternal Grandmother Malignant tumor of stomach [email or web address] Not available 2022 12:55:17 Paternal Grandmother Cirrhosis of liver Not available 2022 12:55:17 Sister Asthma Not available 13:11:47 Medical History Condition Response Allergies (Food, seasonal, environmental ) N Other N Breast Cancer N Drug/Latex Allergies/Reactions N Blood Transfusion N Dermatologic Disorders N Lung Disease N Defects or Inherited Disease N Breast Problem N Gestational Diabetes N Hematologic disorders Y Anesthesia Complications N History of STI Y Deep Vein Thrombosis Y Polycystic ovary syndrome N Anxiety Disorder Y Autoimmune disease N Arthritis N Infertility N Polyps N Acid Reflux (GERD) N History of abnormal pap Y Cancer N Stroke N Varicosities N Neurologic/Epilepsy N Endometriosis N High Cholesterol N Headaches N Fibromyalgia N Kidney Disease N Heart Problems N Kidney or Bladder Problems N Thyroid Problems N GI Problems N Eating Disorder N Anemia N Art (IVF or FET) N Psychiatric Illness N Ovarian Cancer N Diabetes N Pulmonary (TB, Asthma) Y Hepatitis/Liver Disease N No Past Medical History N Eczema N Urinary Tract Infection N Abuse/Domestic Violence N Asthma N Trauma/Violence N Depression/ depression Y Heart Disease N Pre-Eclampsia N Hypertension N Osteoporosis N Thrombophilias N Gynecological History Statement/Question Response Abnormal Pap Yes Date of Last Mammogram 12/31/2023 Date of LMP 02/09/2015 N On BCP's at Conception? Y STIs/STDs Y Was last menstrual period normal N HPV Vaccine N Colposcopy 02/19/2022 Current Control Method Menopause 10 Age at First Child 22 If Post Menopausal, Age at Menopause 52 Date of Last Colonoscopy 02/14/2019 Sexually Active? N Menses Monthly N Age of first menstrual cycle 10 Date of Last Pap Smear 02/17/2023 Sexual Problems? Y LMP Unknown 02/14/2019 N Obstetrics History GPAL:G 2 P 0 0 0 2 Type Value Living 2 Total 2 Past Encounters Encounter ID Performer Location Encounter Start Date Encounter Closed Date Diagnosis/Indication Diagnosis SNOMED-CT Code Diagnosis ICD10 Code Diagnosis Note [id number] Mirta Mckinney [facility] [address] [address] 01/08/2021 12:45:31 01/08/2021 16:54:02 Gynecologic examination 60994301 Z01.419 Take Calcium with Vitamin D 12-1500mg daily. Do monthly self breast exams. It is advised to get annual flu shot in the fall and she could obtain at [facility] or [facility] care clinic. If you haven't received the Tdap vaccine in the last 10 years you should obtain one as well. Have mammogram yearly, bone density every 2-3 years and colonoscop y every 5-10 years depending on findings and history. Engage in daily exercise of low impact aerobic exercise 45-60 minutes 4-5 times weekly. Avoid tobacco and illicit drugs as well as using moderation with alcohol intake less than 1-2 8 oz beverages daily. This lifestyle behavior pattern will lead to less health conditions and longer life span. If BMI greater than 25 weight watchers or dietary consult advised. Questions have been answered. 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 Less than 1pk a month (0-3 cigs per wk)Accepts risks of using this medication even low dose that include increase risks cardiovasc ular evens such as stroke/DVT /PE/VTE/Br east cancers.We discussed keeping this therapy at a minimum & low dose.In a relationsh ip & still trying to be SA.Feels menopausal dryness is starting to affect her relationsh ip & very painful. RTO x 3mos med checkVCG's advised Counseled on medication R/B's, Most common side effects, & use. [place]. [id number] Mirta Mckinney [place] [address],[place] [address] 02/06/2021 13:59:14 02/07/2021 09:45:15 Screening procedure 05262460 Z13.9 Human ximena llomavirus deoxyribonucleic acid detected, high risk on cervical specimen 305986493 R87.810 +HPV HR & 16 See procedure notes.Post -procedure instructio ns reviewed with understand ing verbalized .Will contact with results & next steps in plan of care. [id number] Mirta Mckinney [place] [address],[place] [address] 08/06/2021 12:26:53 08/06/2021 14:53:29 Screening mammography 08452678 Z12.31 Human ximena llomavirus deoxyribonucleic acid detected, high risk on cervical specimen 853862719 R87.810 R/P pap/hpv 6mos for +HPV HR & 16.Will contact with results. Time spent in visit is a total of 15 mins with at least 50% of visit consisting of counseling and review of plan of care. [id number] Mirta Mckinney [facility] [address],[place] [address] 09/03/2021 11:57:58 09/04/2021 12:28:13 [id number] Mirta Mckinney [facility] [address],[place] [address] 01/14/2022 11:59:02 01/14/2022 13:15:03 Gynecologic examination 98485259 Z01.419 Z11.51 Take Calcium with Vitamin D 12-1500mg daily. Do monthly self breast exams. It is advised to get annual flu shot in the fall and she could obtain at [facility] or [facility] care clinic. If you haven't received the Tdap vaccine in the last 10 years you should obtain one as well. Have mammogram yearly, bone density every 2-3 years and colonoscop y every 5-10 years depending on findings and history. Engage in daily exercise of low impact aerobic exercise 45-60 minutes 4-5 times weekly. Avoid tobacco and illicit drugs as well as using moderation with alcohol intake less than 1-2 8 oz beverages daily. This lifestyle behavior pattern will lead to less health conditions and longer life span. If BMI greater than 25 weight watchers or dietary consult advised. Questions have been answered. Patient appears to understand instructio ns, but if you have any further questions call or respond to this email Pap/hpv sentSTD declinedMa mmo orderedDex a orderedGen [facility]iTexas [facility] [id number] Andrew Avila MD [facility] [address] [address] 01/30/2022 11:09:40 01/31/2022 10:54:32 Dysplasia of cervix 74204555 N87.9 This patient is a 48-year-ol d female with longstandi ng cervical dysplasia. We have agreed to perform Cervical conization . She understand s the risks, benefits, and alternativ es. She has completed the informed consent process is ready to proceed. Made a decision to perform surgery today. [id number] Andrew Avila MD [facility] [address] [address] 02/15/2022 12:53:29 02/17/2022 15:12:23 Dysplasia of cervix 19479460 N87.9 This patient is a 48-year-ol d female with longstandi ng cervical dysplasia. We have agreed to perform Cervical conization . She understand s the risks, benefits, and alternativ es. She has completed the informed consent process is ready to proceed. Made a decision to perform surgery today. [id number] Andrew Avila MD [facility] [address] [address] 02/27/2022 12:06:31 02/27/2022 13:26:14 Abnormal cervical Papanicolaou smear 522745598 R87.619 48-year-ol d female presents for follow-up after LEEP procedure. She is recovering normally. 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 We agreed repeat Pap smear 1 year. She has no problems, no bleeding. [id number] Mirta Mckinney , [facility] [address] [address] 02/17/2023 11:07:10 02/17/2023 12:09:14 Gynecologic examination 21946039 Z01.419 Z11.51 Take Calcium with Vitamin D 12-1500mg daily. Do monthly self breast exams. It is advised to get annual flu shot in the fall and she could obtain at [facility] or [facility] clinic. If you haven't received the Tdap vaccine in the last 10 years you should obtain one as well. Have mammogram yearly, bone density every 2-3 years and colonoscop y every 5-10 years depending on findings and history. Engage in daily exercise of low impact aerobic exercise 45-60 minutes 4-5 times weekly. Avoid tobacco and illicit drugs as well as using moderation with alcohol intake less than 1-2 8 oz beverages daily. This lifestyle behavior pattern will lead to less health conditions and longer life span. If BMI greater than 25 weight watchers or dietary consult advised. Questions have been answered. Patient appears to understand instructio ns, but if you have any further questions call or respond to this email Pap/hpv sentSTD declinedMa mmo orderedDex a orderedGen etic screen discussedNor[facility] Hospitalon [facility] Screening mammography 24 690915 Z12.31 [id number] Yee Rivas [facility] [address] [address] 02/22/2024 11:19:33 02/22/2024 12:00:39 Gynecologic examination 45378539 Z01.419 Annual gynecologi maximiliano exam performed. Patient will come back in a year unless there are new symptoms. Suggest Calcium with Vitamin D if not eating in diet. Patient advised to get annual flu shot. Recommend yearly physicals and perform monthly breast exams. Genetic testing is available for patients with family history of cancer. Engage in safe sexual practices, use condoms. Encouraged to have daily exercise. Avoid tobacco and illicit drugs, moderation of alcohol. If BMI greater than 25 dietary consult advised. If you have any questions please call or email. mammogram- UTD; order given, pt to schedule colon cancer screening - UTD PCP DEXA scan- ordered; pt to schedule Pap smear- pap w/ HPV collected today (hx NILM, HPV positive 02/17/2023)P ending the results of the pap collected today, pt requests consult with MD to discuss possible hysterecto my d/t recurrent abnormal pap smears (HPV HR positive) despite LEEP 02/19/22. Discussed that if pap collected today is normal and HPV negative, no further interventi on is needed at these time. Patient verbalizes understand ing. laboratory evaluation - PCP STI testing - declined Screening mammography 24 279220 Z12.31 Screening for osteoporosis 911125000 Z13.820 Health Concerns Section Related Observation LastModified by Organization Detai ls LastModified Time None Recorded Concern Status LastModified by Organization Details LastModified Time None Recorded Advance Directives Directive N: Payers Encounter Date Sequence Insurance Name Policy Number Policy Crockett Covered Member ID Crockett Member ID Guarantor Name 02/15/2022 1 [place] [id number] Jolie A Refugio [id number] Jolie A Refugio 02/27/2022 1 [place] 33A Jolie A Refugio [id number] Jolie A Refugio 02/17/2023 1 [place] 33A Jolie A Refugio [id number] Jolie A Refugio 02/22/2024 1 [place] 33A Jolie A Refugio [id number] Jolie A Refugio Notes Date Note Type Note Provider Name and Address Organization Details Recorded Time 02/15/2022 text/html this patient is a 56-year-old female who presents for preoperative care. She has recurrent cervical dysplasia. We have agreed to perform conization of the cervix in the operating room. She understands the risks The patient understands the procedure. The procedure was described to the patient in great detail. the patient also understands the risks. The risks were also explained in detail. She understands that injuries May occur during surgery. She understands these injuries can result in hospitalization, more surgery, and severe illness. She understands there is risk of hemorrhage and infection. Andrew Avila MD [address], [place], [address], [facility] 02/15/2022 13:23:27 02/27/2022 text/html 48-year-old shiela kamara presents for follow-up after LEEP procedure. She is recovering normally. 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 We agreed repeat Pap smear 1 year. She has no problems, no bleeding. Andrew Avila MD [address], [place], [address], [facility] 02/27/2022 13:13:27 02/17/2023 text/html Annual Regional Safety Manager Post-MenopausalRep orted bypatient.Menopaus al Symptoms:no menopausal symptoms; normal vaginal lubrication Vaginal Bleeding:history of menopause having occurred; no history of post menopausal bleeding Urinary Symptoms:no hematuria; no incontinence; no nocturia; no urinary frequency Vulva:no genital lesion; no vulvar atrophy Vagina:normal vaginal discharge; no vaginal atrophy Breast:no breast lump; no nipple discharge; no breast pain Sexual Complaints:no sexual complaints Psychological Symptoms:no depression; no anxiety Preventive Measures:encourage regular mammograms starting age 40; encourage self breast examination; encourage regular exercise; encourage no tobacco use; needs to schedule mammogram; history of recent colonoscopy Mirta Mckinney [facility] [address], [place], [address], [facility] 02/17/2023 12:07:12 02/22/2024 text/html Annual Regional Safety Manager Post-MenopausalRep orted bypatient.Menopaus al Symptoms:no menopausal symptoms; normal vaginal lubrication Vaginal Bleeding:history of menopause having occurred; no history of post menopausal bleeding Urinary Symptoms:no hematuria; no incontinence; no nocturia; no urinary frequency Vulva:no genital lesion; no vulvar atrophy Vagina:normal vaginal discharge; no vaginal atrophy Breast:no breast lump; no nipple discharge; no breast pain Sexual Complaints:no sexual complaints Psychological Symptoms:no depression; no anxiety Preventive Measures:encourage regular mammograms starting age 40; encourage self breast examination; encourage regular exercise; encourage no tobacco use; mammogram performed within the past year; needs to schedule bone density Patient presents for annual well woman exam. Patient states that she is not SA. Yee [facility] 02/22/2024 12:35:37 OBGyn Episode Ob Episode Information Episode Created Date Number of Fetuses Patient Bloodtype Patient rh Status Prepregnancy Weight lbs Domestic Partner Domestic Partner Phone Father Name Translator Deaf Status 01/09/20 21 1 CLOSED Fetus Data First Name Last Name Admitted to NICU Weight (g) Sex Living Outcome Pediatric Complications Fetus ID Race Codes Race Delivery Type 3600.15 [id number] F Full Term [id number] Vaginal Delivery Mart Calculation Initial Mart Date Initial Exam Date Initial Exam Provider Initial Ultrasound Date Last Menstrual Period Date Ultra Sound Weeks Gestation 0 Eighteen To Twenty Week Mart Update Ultra Sound Date Fundal Height At Umbil Quickening Date Ultra Sound Latest Weeks Gestation Final Mart Confirmed By Final Mart Confirmed Date Final Mart Date Ultra Sound Latest Days Gestation 0 0 Menstrual History Last Menstrual Date Menses Monthly On Bcp Conception Prior Menses Frequency Hcg Plus Date Menarche Onset Age Delivery Information Delivery Date Delivery Type Labor Anesthesia Weeks Gestation Incision Type Labor Labor Length Hrs Delivered By Post Complications Tubal Sterilization Discharge Date Comments 8 Discharge Information Feeding Method Contraceptive Method Maternal HG B and HCT Levels Ob Episode Information Episode Created Date Number of Fetuses Patient Bloodtype Patient rh Status Prepregnancy Weight lbs Domestic Partner Domestic Partner Phone Father Name Translator Deaf Status 01/09/20 21 1 CLOSED Fetus Data First Name Last Name Admitted to NICU Weight (g) Sex Living Outcome Pediatric Complications Fetus ID Race Codes Race Delivery Type 3600.15 [id number] M Full Term [id number] Vaginal Delivery Mart Calculation Initial Mart Date Initial Exam Date Initial Exam Provider Initial Ultrasound Date Last Menstrual Period Date Ultra Sound Weeks Gestation 0 Eighteen To Twenty Week Mart Update Ultra Sound Date Fundal Height At Umbil Quickening Date Ultra Sound Latest Weeks Gestation Final Mart Confirmed By Final Mart Confirmed Date Final Mart Date Ultra Sound Latest Days Gestation 0 0 Menstrual History Last Menstrual Date Menses Monthly On Bcp Conception Prior Menses Frequency Hcg Plus Date Menarche Onset Age Delivery Information Delivery Date Delivery Type Labor Anesthesia Weeks Gestation Incision Type Labor Labor Length Hrs Delivered By Post Complications Tubal Sterilization Discharge Date Comments 1 Discharge Information Feeding Method Contraceptive Method Maternal HG B and HCT Levels
[2024-05-04 09:48] LABS: Alanine Aminotransferase 21 U/L (14-59); Alkaline Phosphatase 81 U/L (46-116); Anion Gap 7 mmol/L (4-12); Aspartate Amino Transferase 19 U/L (15-37); Bilirubin,Total 0.3 mg/dL (0.00-1.00); Blood Urea Nitrogen 16 mg/dL (7-18); Carbon Dioxide 30 mmol/L (21-32); Chloride 103 mmol/L (98-108); Cholesterol 283 mg/dL (0-200); Estimated Glomerular Filt Rate > 60; Glucose 88 mg/dL (70-99); HDL Direct 110 mg/dL (40-60); LDL Cholesterol Calculated 157 mg/dL (<130); Osmolality Calculated 290 mOsm/kg (285-295); Potassium 4.5 mmol/L (3.5-5.1); Sodium 140 mmol/L (136-145); Thyroid Stimulating Hormone 2.16 uIU/mL (0.36-3.74); Total Protein 7.2 g/dL (6.4-8.2); Triglycerides 79 mg/dL (0-150)
== END 2024-05-04 08:43 | disposition home or self-care (01) ==
LOC: CHSLAB 08:45
PROVIDERS: PCP Internal Medicine; Visit Provider Internal Medicine
DX: Z00.00 Encounter for general adult medical examination without abnormal findings (principal); M25.551 Pain in right hip
CPT/HCPCS: 36415; 73502; 80053; 80061; 81003; 84443; 85025

== ENCOUNTER 2024-12-02 09:54 | Outpatient (CLI) | payer BC, SELFPAY ==
--- NOTE | ~2024-12-02 | CT_ITS ---
EXAMINATION: CT lung screening DATE: 12/02/2024 10:08 INDICATION: Personal history of nicotine dependence TECHNIQUE: Computed tomography (CT) of the chest was performed without intravenous contrast. The dose-length product was 56.31 mGy-cm. COMPARISON: CT dated 11/16/2023 FINDINGS: There is right lower lobe atelectasis/scarring unchanged from prior study. No endobronchial lesion. No pneumothorax. Small 2 mm left lower lobe nodule unchanged. No acute focal pneumonia, edema or pneumothorax. No endobronchial lesions. Mild thoracic spondylosis. IMPRESSION: 1. . Lung-RADS category 2: Benign appearance or behavior. Continue annual screening with noncontrast low-dose chest CT in 12 months. Reviewed, dictated and finalized at location [facility]. IMPRESSION: 1. . Lung-RADS category 2: Benign appearance or behavior. Continue annual scree rajani with noncontrast low-dose chest CT in 12 months.
--- OUTSIDE RECORDS SUMMARY | 2024-12-02 10:12 | XMS_ITS | Data Portability ---
Author Organization [facility] Address [address] [place] [address] [address] Care Team Providers Care Greenkeeper Name Role Phone DARLING DOLAN Primary Care Provider Assessment Encounter Date Assessment Date Assessment LastModified by Organization Details LastModified Time 02/17/2023 02/17/2023 Annual gynecological exam performed. Patient will come back in a year unless there are new symptoms. [email or web address] Not available 02/17/2023 11:34:59 02/22/2024 02/22/2024 Annual gynecological exam performed. Patient will come back in a year unless there are new symptoms. Not available 02/19/2024 10:35:51 Plan of Treatment Reminders Order Date Submit Date Provider Last Modified By Organization Details Last Modified Time Details Appointments None recorded. Lab pap, IG + HR HPV - HPV regardless but if HPV is positive need subtyping 16,18/45 2024 025 [facility] (Lab), [address], [place], [address], 13:05:31 Referral None recorded. Procedures None recorded. Surgeries None recorded. Imaging MAMMO, screening, digital, bilateral [email or web address] [place] [address], [address], [place], [address], 14:43:58 DEXA, axial skeleton + vertebral fracture assessment 2024 025 [email or web address] [facility], [address], [place], [address], 5 14:43:58 MAMMO, screening, bilateral 2023 024 CLAUDIA [facility], [address], [place], [address], 4 14:15:15 Medication Orders None recorded. Patient [...] t Case: [id number] Autho raul Provi elicia: Archie Ho Colle cted: 02/17 1450 LEATHER TACKER Order ing Locat ion: [place] Patho logy [...] as clini monica whittington nted. Not Available [facility] (Lab) [address], [place], [address], 02/20/2023 14:41:43 02/21/19 25 02/22/2024 IMAGE GUIDE D PAP AND HPV REGAR DLESS image guided Pap, HPV regardless of Pap result SEE RESULT S BELOW CASE REPOR T: Cytol ogy Gynec ologi maximiliano Repor t Case: [id number] Autho risara g Provi elicia: Dermo krystal, Francesca , ANP, POCKET OPERATOR Colle cted: 02/21 1138 Order ing Locat ion: [place] Patho logy Recei jacob: 02/22 0141 First Scree n: Yanique Gray, CT Rescr een: [employer]g Brothers, CT Speci men: Yessica gerard Pap - Image d, Cervi x STATE [...] OSIS: Negat esequiel for Intra epith elial Mirna n or Merle rodríguez (NIL) . Atrop tushar byers rn. Elect yasir dodson by [employer], CT on 2024 at 1201 DOCTOR PODIATRIC MEDICINE ----- ----- ----- ----- ----- ----- ----- [...] false negat esequiel resul ts. A negat esequeil resul t does not precl ude the [...] as clini monica whittington nted. Not Available [facility] (Lab) [address], [place], [address], 02/29/2024 13:05:31 11/05/19 23 11/04/2022 MAMMO , scree rajani, bilat eral No observ ation record ed. [email or web address] [facility] [address], [place], [address], 02/17/2023 12:04:58 12/31/1912/31/2023 MAMMO , scree rajani, bilat eral No observ ation record ed. [email or web address] [facility] [address], [place], [address], 12/31/2023 14:15:15 Result Notes None recorded. 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 16:25:31 Insertio n of intraute rine contrace ptive device Completed 201101/07/2021 INSERTIO N OF IUD;Lalo rded Elsewher e: No Locat ion: [facility] S ource: EHR High [employer] Business Teacher lisa: Ruba Puentes ce ID: 0001 Tom lable Time: 08:15:00 AM Christin [facility] 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 16:25:42 Benign essentia l hyperten giorgi [id number] Completed 201301/07/2021 Benign essentia l hyperten giorgi;Rec orded Elsewher e: No Locat ion: [facility] S ource: EHR High School Business Teacher lisa: N Doreenti ce ID: 0001 Tom lable Time: 02:00:00 PM [facility]in [facility] 16:25:30 Proteinu kiera [id number] Completed 201301/07/2021 Proteinu kiera;Lalo rded Elsewher e: No Locat ion: [facility] S ource: EHR High [employer] Business Teacher lisa: N Practi ce ID: 0001 Tom lable Time: 02:00:00 PM [facility]in [facility] 16:25:45 Sexually transmit nir infectio us disease Completed 201301/07/2021 SPECIAL SCREEN EXAM HPV;Lalo rded Elsewher e: No Locat ion: [facility] S ource: EHR High School Business Teacher lisa: N Practi ce ID: 0001 Tom lable Time: 02:00:00 PM Christin [facility] 11/29/202 1 16:25:51 Adult health examinat ion Completed 201301/07/2021 ROUTINE MEDICAL EXAM;Rec orded Elsewher e: No Locat ion: [facility] S ource: EHR High School Business Teacher lisa: N Doreenti ce ID: 0001 Tom lable Time: 02:00:00 PM [facility] 16:25:28 Mammogra phy abnormal [id number] Completed 201401/07/2021 Unspecif ied abnormal mammogra m;Record ed Elsewher e: No Locat ion: [facility] S ource: EHR High School Business Teacher lisa: N Practi ce ID: 0001 Tom lable Time: 01:03:39 PM [facility] 16:25:[address] Concept Completed 201701/07/2021 Encntr for general adult medical exam w/o abnormal findings ;Practic e ID: 0001 [facility] 16:25:[address] Concept Completed 201701/07/2021 Encntr for railroad brake repairer exam (general ) (routine ) w/o abn findings ;Practic e ID: 0001 [facility] 16:25:54 Screenin g for malignan t neoplasm of rectum Completed 201701/07/2021 Encounte r for screenin g for malignan t neoplasm of rectum;P ractice ID: 0001 [facility] 16:25:49 Removal of intraute rine device Completed 201701/07/2021 Encounte r for removal of intraute rine contrace ptive device;P ractice ID: 0001 [facility] 16:25:46 Evaluati on finding Completed 201801/07/2021 Unsp abnormal cytolog findings in specmn from cervix uteri;Pr actice ID: 0001 [facility] 16:25:33 Pregnanc y test negative [id number] Completed 201801/07/2021 Encounte r for pregnanc y test, result negative ;Practic e ID: 0001 [facility] 16:25:43 Low grade squamous intraepi thelial lesion on cervical Papanico laou smear [id number] 105 Completed 201801/07/2021 Low grade intrepit h lesion cyto smr crvx (LGSIL); Recorded Elsewher e: No Locat ion: [facility] S ource: EHR High School Business Teacher lisa: N Practi ce ID: 0001 Tom lable Time: 02:45:00 PM [facility]in [facility] 16:25:38 Problem Notes None recorded. Procedures Surgical History Date Name Laterality Status Provider Name and Address Organization Details Recorded Time 12/31/19 24 Date of Last Mammogram completed [facility] 02/19/2024 10:38:10 02/17/19 24 Date of [facility] 02/19/2024 10:37:32 02/19/19 23 Colposcopy completed Maddi Hobbs [facility] 02/17/2023 11:31:59 02/19/19 23 CONIZATION OF CERVIX (SURG) completed Paty Shaw [facility] 02/20/2022 11:30:00 02/07/20 21 Colposcopy completed JULES Romero- [address], [place], [address], [facility] 02/06/2021 17:46:42 02/07/20 21 Colposcopy completed Christin Bowen [facility] 02/07/2021 11:49:01 02/09/19 21 colonoscopy completed Mirta Mckinney, [facility]- [address], [place], [address], [place] [facility] 01/08/2021 13:14:19 02/14/19 20 completed [facility] 01/08/2021 12:58:02 02/14/19 20 Date of Last Colonoscopy completed [facility] 01/08/2021 12:58:02 02/09/19 06 osteoplasty of clavicle completed Lawanda Dunn [facility] 01/14/2022 12:13:08 Imaging Results None recorded. Procedure Notes None recorded. Medical Equipment None Reported. Allergies Allergen ID Allergen Name Allergen Category Reaction Reaction Severity Criticality Documentation Date Start Date Code Code System Note Provider Name and Address Organization Details Recorded Time 22369 Product containin g penicilli n (product) medicatio n Not available Not available Not available 01/27/2020 63381 8001 SNOMED Comme nt: [facility]; [facility] 14:20:43 Medications Name Sig Start Date [...] Prescrib ed Elsewher e: No Locat ion: [facility] odify By: tiffanie vera DateTime : 01/16/20 [...] Prescrib ed Elsewher e: No Locat ion: [facility] odify By: ewa vera DateTime : 01/25/20 [...] ed Elsewher e: Yes Loca tion: [facility] odify By: ewa vera DateTime : 01/16/20 11 10:45:00 AM Not Available Not Available Not Available Banophen 25 mg capsule 02/06 completed Not Available Not Available Not Available Wellbutri n 100 mg tablet take 1 tablet by oral route 2 times every day 01/08 completed Prescrib ed Elsewher e: Yes Loca tion: [facility] odify By: tiffanie vera DateTime [...] oral route every week 01/08 completed Prescrib antonio Mckay e: No Locat ion: [facility] M odify By: ewa vera DateTime : 02/24/19 10:54:17 AM Not Available Not Available Not [...] Body mass index (BMI) Body weight Systolic And Diastolic Provider Name and Address Organization Details Last Updated DateTime 02/15/2022 165.74 cm 24.6 kg/m2 24972.26 g 140/80 mm[Hg] Jayne Kraft [facility] 02/15/2022 12:58:54 Date Recorded Body height Body mass index (BMI) Body weight Systolic And Diastolic Provider Name and Address Organization Details Last Updated DateTime 02/17/2023 165.74 cm 24.9 kg/m2 10947.45 g 129/81 mm[Hg] Maddi Hobbs [facility] 02/17/2023 11:36:50 Date Recorded Body height Body mass index (BMI) Body weight Systolic And Diastolic Provider Name and Address Organization Details Last Updated DateTime 02/22/2024 165.74 cm 26.2 kg/m2 03457.75 g 148/89 mm[Hg] Yee Rivas [facility] 02/22/2024 11:33:51 Date Recorded Body height Body mass index (BMI) Body weight Systolic And Diastolic Provider Name and Address Organization Details Last Updated DateTime 02/27/2022 165.74 cm 24.6 kg/m2 32321.26 g 142/88 mm[Hg] Anna Osman [facility] 02/27/2022 12:24:30 Social History Question Answer Notes LastModified by Organizat ion Details LastModified Time Tobacco Smoking Status Current Some Day Smoker Less than 0-3 per week Hawk torres, [facility] 02/15/2022 12:55:18 Do You Have An Advance Directive? No Information not available 01/08/2021 How Many Years [...] Or The Highest Degree You Have Received? [id number] Information not available 01/08/2021 Are There Any [...] PPW Information not available 02/06/2021 Do You Use Sunscreen Routinely? No Information not available 01/08/2021 Has Tobacco Cessation Counseling Been Provided? Yes [email or web address] Information not available 02/15/2022 How Many Years Have You Smoked Tobacco? 25 Information not available 01/08/2021 Have You Used IV Drugs? No Information not available 01/08/2021 Do You Have Difficulty Walking Or Climbing Stairs? No [email or web address] Information not available 02/15/2022 Sex: Unknown Functional Status Question Answer Note LastModified by Organizat ion Details LastModified Time Do you use any illicit or recreational drugs? No Information not available 01/08/2021 Do you or have you ever used any other forms of tobacco or nicotine? No [email or web address] Information not available 02/15/2022 What is your level of alcohol consumption? Occasional Information not available 01/08/2021 Are you able to walk independently without assistance or assistive devices? YESWOREST Information not available 01/08/2021 Are you able to care for yourself independently? Yes [email or web address] Information not available 02/15/2022 What is your occupation? Retired Information not available 01/08/2021 Do you have difficulty dressing, bathing, grooming, or toileting? No [email or web address] Information not available 02/15/2022 What is your exercise level? Moderate Information not available 01/08/2021 Mental Status Question Answer Note LastModified by Organization D etails LastModified Time Do you feel stressed (tense, restless, nervous, or anxious, or unable to sleep at night)? [id number] [email or web address] Information not available 01/14/2022 Family History Relationship Description Onset Age of this Age Resolved Age Notes LastModified by Organization Details LastModified Time Maternal Grandfather Malignant neoplasm of prostate Not available 2022 12:55:17 Father Disease of liver [email or web address] Not available 2022 12:55:17 Maternal Grandmother Malignant neoplasm of stomach [email or web address] Not available 2022 12:55:17 Paternal Grandmother Cirrhosis of liver [email or web address] Not available 2022 12:55:17 Sister Asthma Not [...] Diagnosis SNOMED-CT Code Diagnosis ICD10 Code Diagnosis IMO Codes Diagnosis Note [id number] Mirta Mckinney , [facility] [address] [address] 01/08/2021 12:45:31 01/08/2021 16:54:02 Gynecologic examination 58124770 Z01.419 Take Calcium with Vitamin D 12-1500mg daily. Do monthly self breast exams. It is advised to get annual flu shot in the fall and she could obtain at [facility] or [facility] care clinic. If you haven't received [...] sceen discussedC olon UTD Postmenopa usal osteopenia [id number] M85.80 Dyspareunia 35122334 N94 .[address] reporter smoker--w orking towards completely quitting.D oes not even [...] questions [place]. [id number] Mirta Mckinney [place] [address],[place] [address] 02/06/2021 13:59:14 02/07/2021 09:45:15 Screening procedure 90098795 Z13.9 Human ximena llomavirus deoxyribonucleic acid detected, high risk on cervical specimen 013968212 R87.810 +HPV HR & 16 See procedure notes.Post -procedure instructio ns reviewed with understand ing verbalized .Will contact with results & next steps in plan of care. [id number] Mirta Mckinney [facility] [address],[place] [address] 08/06/2021 12:26:53 08/06/2021 14:53:29 Screening mammography 72189954 Z12.31 Human ximena llomavirus deoxyribonucleic acid detected, high risk on cervical specimen 431008961 R87.810 R/P pap/hpv 6mos for +HPV HR & 16.Will contact with results. Time spent in visit is a total of 15 mins with at least 50% of visit consisting of counseling and review of plan of care. [id number] Mirta Mckinney [facility] [address],[place] [address] 09/03/2021 11:57:58 09/04/2021 12:28:13 [id number] Mirta Mckinney [facility] [address],[place] [address] 01/14/2022 11:59:02 01/14/2022 13:15:03 Gynecologic examination 42289942 Z01.419 Z11.51 Take Calcium with Vitamin D 12-1500mg daily. Do monthly self breast exams. It is advised to get annual flu shot in the fall and she could obtain at [facility] or [facility] take care clinic. If you haven't received the [...] Pap/hpv sentSTD declinedMa mmo orderedDex a [facility]Gen [facility] [id number] Andrew Avila MD [facility] [address],[place] [address] 01/30/2022 11:09:40 01/31/2022 10:54:32 Dysplasia of cervix 00190130 N87.9 This patient is a 48-year-ol d female with longstandi ng cervical dysplasia. We have agreed to perform Cervical conization . She understand s the risks, benefits, and alternativ es. She has completed the informed consent process is ready to proceed. Made a decision to perform surgery today. [id number] Andrew Avila MD [facility] [address],[place] [address] 02/15/2022 12:53:29 02/17/2022 15:12:23 Dysplasia of cervix 60846629 N87.9 This patient is a 48-year-ol d female with longstandi ng cervical dysplasia. We have agreed to perform Cervical conization . She understand s the risks, benefits, and alternativ es. She has completed the informed consent process is ready to proceed. Made a decision to perform surgery today. [id number] Andrew Avila MD [facility] [address],[place] [address] 02/20/2022 09:57:45 02/20/2022 09:59:05 [id number] Andrew Avila MD [facility] [address],[place] [address] 02/27/2022 12:06:31 02/27/2022 13:26:14 Abnormal cervical Papanicolaou smear 699941822 R87.619 48-year-ol d female presents for follow-up after LEEP procedure. She is recovering normally. 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 We agreed repeat Pap smear 1 year. She has no problems, no bleeding. [id number] Mirta Mckinney [facility] [address] [address] 02/17/2023 11:07:10 02/17/2023 12:09:14 Gynecologic examination 43930027 Z01.419 Z11.51 Take Calcium with Vitamin D 12-1500mg daily. Do monthly self breast exams. It is advised to get annual flu shot in the fall and she could obtain at [facility] or [facility] clinic. If you haven't received the Tdap [...] Pap/hpv sentSTD declinedMa mmo orderedDex a orderedGen eti screen [facility] Screening mammography 24 657013 Z12.31 [id number] Andrew Avila MD [facility] [address] [address] 02/22/2024 11:19:33 02/22/2024 12:00:39 Gynecologic examination 25922813 Z01.419 Annual gynecologi maximiliano exam performed. Patient [...] STI testing - declined Screening mammography 24 960562 Z12.31 Screening for osteoporosis 242452672 Z13.820 Health Concerns Section Related Observation LastModified by Organization Detai ls LastModified Time None Recorded Concern Status LastModified by Organization Details LastModified Time None Recorded Advance Directives Directive N: Payers Insurance Date Sequence Insurance Name Policy Number Policy Crockett Covered Member ID Crockett Member ID Guarantor Name 02/17/2023 1 [place] 111 Jolie A Refugio [id number] Jolie A Refugio 02/19/2024 1 [place] [id number] Jolie A Refugio [id number] Jolie A Refugio Notes Date Note Type Note Provider Name and Address Organization Details Recorded Time 3 text/html this patient is a 56-year-old female [...] infection. Andrew Avila MD [address], [place], [address], [facility] 02/15/2022 13:23:27 3 text/html 48-year-old female presents for follow-up after LEEP procedure. She is recovering normally. 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 We agreed repeat Pap smear 1 year. She has no problems, no bleeding. Andrew Avila MD [address], [place], [address], [facility] 02/27/2022 13:13:27 4 text/html Annual Salesforce Specialist Post-MenopausalReported by PatientGenitourinary symptomsFor menopausal symptoms, patient reportsno menopausal symptomsandnormal vaginal lubrication. For vaginal bleeding, patient reportshistory of menopause having occurredandno history of post menopausal bleeding. For urinary symptoms, patient reportsno hematuria,no incontinence,no nocturia, andno urinary frequency. For vulva, patient reportsno genital lesionandno vulvar atrophy. For vagina, patient reportsnormal vaginal dischargeandno vaginal atrophy.Breast symptomsFor breast, patient reportsno breast lump,no nipple discharge, andno breast pain.Psychological symptomsFor sexual complaints, patient reportsno sexual complaints. For psychological symptoms, patient reportsno depressionandno anxiety.Preventative measuresFor preventive measures, patient reportsencourage regular mammograms starting age 40,encourage self breast examination,encourage regular exercise,encourage no tobacco use,needs to schedule mammogram, andhistory of recent colonoscopy. Mirta Mckinney, [facility]- [address], [place], [address], [facility] 02/17/2023 12:07:12 5 text/html Annual Salesforce Specialist Post-MenopausalReported by PatientGenitourinary symptomsFor menopausal symptoms, patient reportsno menopausal symptomsandnormal vaginal lubrication. For vaginal bleeding, patient reportshistory of menopause having occurredandno history of post menopausal bleeding. For urinary symptoms, patient reportsno hematuria,no incontinence,no nocturia, andno urinary frequency. For vulva, patient reportsno genital lesionandno vulvar atrophy. For vagina, patient reportsnormal vaginal dischargeandno vaginal atrophy.Breast symptomsFor breast, patient reportsno breast lump,no nipple discharge, andno breast pain.Psychological symptomsFor sexual complaints, patient reportsno sexual complaints. For psychological symptoms, patient reportsno depressionandno anxiety.Preventative measuresFor preventive measures, patient reportsencourage regular mammograms starting age 40,encourage self breast examination,encourage regular exercise,encourage no tobacco use,mammogram performed within the past year, andneeds to schedule bone density. Patient presents for annual well woman exam. Patient states that she is not SA. Yee Rivas [facility], [facility] 02/22/2024 12:35:37 OBGyn Episode Ob Episode Information Episode Created Date Number of Fetuses Patient Bloodtype Patient rh Status Prepregnancy Weight lbs Domestic Partner Domestic Partner Phone Father Name Battery Plate Assembler Status 01/09/20 21 1 CLOSED Fetus Data First Name Last Name Admitted to NICU Weight (g) Sex Living Outcome Pediatric Complications Fetus ID Race Codes Race Delivery Type 3600.15 9704 F Full Term 17003 Vaginal Delivery Mart Calculation Initial Mart Date [...] Domestic Partner Domestic Partner Phone Father Name Battery Plate Assembler Status 01/09/20 21 1 CLOSED Fetus Data First Name Last Name Admitted to NICU Weight (g) Sex Living Outcome Pediatric Complications Fetus ID Race Codes Race Delivery Type 3600.15 9704 M Full Term [id number] Vaginal Delivery Mart Calculation Initial Mart Date [...]
--- OUTSIDE RECORDS SUMMARY | 2024-12-02 10:12 | XMS_ITS | Encounter Summary ---
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
--- OUTSIDE RECORDS SUMMARY | 2024-12-02 10:12 | XMS_ITS | Encounter Summary ---
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
--- OUTSIDE RECORDS SUMMARY | 2024-12-02 10:12 | XMS_ITS | Clinical Summary ---
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 Gender Identity Not on file Sexual Orientation [...] 12:12 PM CDT Height 165.1 cm (5' 5) 12/04/2023 12:12 PM CDT Body Mass Index 24.96 12/04/2023 12:12 PM CDT Plan of Treatment Health Maintenance Due Date Last Done Comments Cervical Cancer Screening 1965 Colon Cancer Screening-Colonoscopy 1965 Depression Screening 1965 Hepatitis C Screening 1965 Hepatitis B Screening 04/11/1981 Regular Well Visit/Exam 18-64 04/11/1981 Zoster Vaccine (1 of 2) 04/11/2013 DTaP/Tdap/Td Vaccine (2 - Td or Tdap) 07/07/2023 07/06/2013 Breast Cancer Screening-Mammogram 11/05/2023 11/04/2022, 09/03/2021, 08/21/2020, Additional history exists Covid-19 Vaccine ( - season) 2024 06/08/2020, 05/17/2020 Influenza Vaccine (#1) 2024 Pneumococcal vaccine <65 Aged Out No longer [...] as needed Medical Devices Implanted Type Area Rehab Liaison Device Identifier Shelf Expiration Date Model / Serial / Lot [employer] System Sprint Percutaneous Electrical Nerve Stimulation 6220-1229 - [id number] Implanted:Qty: 1 on 10/06/2023 by Lesley Green MD at [facility] [employer] 04/15/2024 [id number] / / [id number] Procedures Procedure Name Priority Date/Time Associated Diagnosis Comments MAMMOGRAPHY, TOMOGRAPHY, BILATERAL Routine 08/04/2016 3:57 PM CDT from Last 3 Months or Most Recently Relevant to Health Maintenance Results * MAMMOGRAPHY, TOMOGRAPHY, BILATERAL (08/04/2016 3:57 PM CDT) Anatomical Region Laterality Modality Breast Bilateral Mammography 08/04/2016 3:57 PM CDT Narrative 08/04/2016 3:57 PM CDT SCREENING MAMM W LILI BI Acc#: [id number] DATE OF EXAM: Aug 04 2016 EXAMINATION: [...] on: Aug 04 2016 10:57A Transcribed by: [facility] On: Aug 04 2016 10:55A Approved Electronically by: DAVID DOTSON M.D. on: Aug 04 2016 10:55A Ordering DR: REFERRAL SELF Attending DR: DR FANY ALVAREZ Attending: DR FANY ALVAREZ Requesting: SELF, REFERRAL Requesting Fax: -- Attending Attending ID: [id number] Requesting ID: [id number] Report To 1 ID: [id number] Report To 1 Name: DR FANY ALVAREZ Report To 1 FAX: [phone] NextGen Order #: Procedure Note Miscellaneous, Not In File / Provider, MD Nasir - 08/04/2016 SCREENING MAMM W LILI BI Acc#: [id number] DATE OF EXAM: Aug 04 2016 EXAMINATION: [...] on: Aug 04 2016 10:57A Transcribed by: [facility] On: Aug 04 2016 10:55A Approved Electronically by: DAVID DOTSON M.D. on: Aug 04 2016 10:55A Ordering DR: REFERRAL SELF Attending DR: DR FANY ALVAREZ Attending: DR FANY ALVAREZ Requesting: SELF, REFERRAL Requesting Fax: -- Attending Attending ID: [id number] Requesting ID: [id number] Report To 1 ID: [id number] Report To 1 Name: DR FANY ALVAREZ Report To 1 FAX: [phone] NextGen Order #: us Not In File Miscellaneous IMG MAMMO PROCEDURES F inal Result from Last 3 Months or Most Recently Relevant to Health Maintenance Insurance [facility] FEDERAL [facility] FED[employer]AL Care Teams Snagger Relationship Specialty Start Date End Date Niall Lott MD PCP - General 07/30/16
--- OUTSIDE RECORDS SUMMARY | 2024-12-02 10:12 | XMS_ITS | Encounter Summary ---
Author Organization [facility] Address [address] [place] [address] Care Team Providers Care Field Recruiter Name Role Phone Niall Lott MD Primary Care Provider [phone] Encounter Details Date Type Department Care Team (Late st Contact Info) Description 01/10/2022 Telephone [facility] [address] [facility] [address] [place], [place] [id number] Lesley Green MD [address] [facility] [address] [facility] [phone] [place], [place] [phone] Social History Tobacco Use Types Packs/Day Years [...] on file 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
--- OUTSIDE RECORDS SUMMARY | 2024-12-02 10:13 | XMS_ITS | Clinical Summary ---
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 Pulse 75 02/14/2022 9:52 AM HELPER TEACHER Temperature 36.4 C (97.6 F) 02/14/2022 9:52 AM HELPER TEACHER Respiratory Rate 18 02/01/2022 1:45 PM HELPER TEACHER Oxygen Saturation 98% 02/14/2022 9:52 AM HELPER TEACHER Inhaled Oxygen Concentration - - Weight 67.7 kg (149 lb 3.2 oz) 02/14/2022 9:52 A M HELPER TEACHER Height 167.6 cm (5' 6) 02/14/2022 9:52 AM HELPER TEACHER Body Mass Index 24.08 02/14/2022 9:52 AM HELPER TEACHER Plan of Treatment Health Maintenance Due Date Last Done Comments Colorectal Cancer Screening Colonoscopy (10 Years) 1963 Annual Physical 04/11/1966 Hepatitis C 04/11/1981 DTaP, Tdap and Td Vaccines ( 1 - Tdap) 04/11/1982 Pneumococcal Vaccine: 50+ Years (1 of 2 - PCV) 04/11/1982 Mammogram Screening 2003 Zoster Vaccines (1 of 2) 04/11/2013 COVID-19 Vaccine (3 2024-2 6 season) 2024 06/08/2020, 05/17/2020 Influenza Adult (#1) 2024 Cervical Cancer Screening Pa p Smear (Age 30 to 64) Every 3 Years 01/14/2025 01/14/2022 Cervical Cancer Screening Pa p with HPV Testing (Age 30 to 64) Every 5 Years 01/14/2027 01/14/2022 Cervical Cancer Screening wi th HPV 01/14/2027 RSV Immunization or 60+ Years (1 - 1-dose 75+ series) 04/11/2038 Hepatitis A Vaccines Aged Out No long er eligible based on patient's age to complete this topic Meningococcal B Vaccine Aged Out No l onger eligible based on patient's age to complete this topic Meningococcal Vaccine Aged Out No cecily marcelle eligible based on patient's age to complete this topic RSV Immunizations Under 20 Months Aged Out No longer eligible b ased on patient's age to complete this topic Insurance [facility] Care Teams Junior Designer Relationship Specialty Start Date End Date Niall Lott MD [address] [place] [id number] PCP - General INTERNAL MEDICINE 02/01/22
== END 2024-12-02 09:55 | disposition home or self-care (01) ==
PROVIDERS: PCP Internal Medicine; Visit Provider Internal Medicine
DX: Z12.2 Encounter for screening for malignant neoplasm of respiratory organs (principal); Z87.891 Personal history of nicotine dependence
CPT/HCPCS: 71271